=== PATIENT | female | born 1990 | race Caucasian/White ===

== ENCOUNTER 2023-03-03 13:52 | Outpatient (CLI) | payer OTHER, SELFPAY ==
--- NOTE | 2023-03-03 14:00 | CRLHL7_ITS ---
For Patients: As a result of the Century Cures Act, medical imaging exams and procedure reports are released immediately into your electronic medical record. You may view this report before your referring provider. If you have questions, please contact your health care provider. INDICATION: Evaluate anatomy. COMPARISON: 12/10/2022 TECHNIQUE: Real time blue scale imaging of the fetus was performed as well as color Doppler analysis of the umbilical vessels. FINDINGS: Sonographic imaging demonstrates a single living intrauterine gestation. Fetus demonstrates a regular cardiac rate of 155 beats per minute. Fetus has a variable position. The placenta lies posteriorly without evidence of placenta previa. The placental edge is 5.1 cm from the internal cervical os. Amniotic fluid volume appears normal. Single deepest vertical pocket: 6.2 cm. The cervix is closed and measures 4.6 cm in length. The composite ultrasound gestational age is calculated at 21 weeks 0 days with an estimated sonographic due date of 07/14/2023. The estimated weight is 405 grams which lies at the 78th %. The following biometric measurements were obtained: Biparietal diameter: 4.9 cm/20 weeks 6 days 60th% Head circumference: 18.6 cm/20 weeks 6 days 57th% Abdominal circumference: 16.3 cm/21 weeks 2 days 69th% Femur length: 3.5 cm/21 weeks 1 day 61st% The HC/AC ratio measures: 1.14 range (1.06-1.25) On anatomic survey, there is a normal appearance of the cerebral ventricles, cavum septi pellucidi, cisterna magna and cerebellum. Incomplete visualization of the profile. The cervical, thoracic and lumbar spine are well visualized and appear normal. There is a normal four-chamber heart view and the left and right ventricular outflow tracts appear normal. There is mention of a possible echogenic intraventricular focus which does not appear very echogenic on image [id number], series 2. The diaphragm and stomach appear normal. The kidneys and bladder also appear normal. There is a normal three-vessel cord and cord insertion site. The four extremities appear normal. IMPRESSION: Concordance of clinical and sonographic dating. The heart views appear to be normal. It is doubtful that there is an echogenic focus. Incomplete visualization of the profile due to position. Short-term follow-up of the profile and second-look of the heart recommended. Dictated by Denis Grimes MD @ 03/04/2023 10:19:27 AM (Electronically Signed)
== END 2023-03-03 13:53 | disposition home or self-care (01) ==
LOC: US 13:53
PROVIDERS: Visit Provider Advanced Practice Midwife
DX: Z34.92 Encounter for supervision of normal pregnancy, unspecified, second trimester (principal); O35.BXX0 Maternal care for other (suspected) fetal abnormality and damage, fetal cardiac anomalies, not applicable or unspecified; Z3A.21 21 weeks gestation of pregnancy
CPT/HCPCS: 76805; 76817

== ENCOUNTER 2023-03-10 10:51 | Outpatient (CLI) | payer OTHER, SELFPAY ==
--- NOTE | 2023-03-10 11:00 | CRLHL7_ITS ---
For Patients: As a result of the Century Cures Act, medical imaging exams and procedure reports are released immediately into your electronic medical record. You may view this report before your referring provider. If you have questions, please contact your health care provider. INDICATION: Follow-up profile and left ventricle. COMPARISON: 03/03/2023 TECHNIQUE: : Real time blue scale imaging of the fetus was performed. FINDINGS: Sonographic imaging demonstrates a single living intrauterine gestation. Fetus demonstrates a regular cardiac rate of 148 beats per minute. Fetus has a vertex position. The placenta lies posteriorly. Amniotic fluid volume appears normal. There does appear to be a small intracardiac hyperechoic focus. profile appears normal. Anterior uterine fibroid is present measuring 2.0 x 2.2 x 2.0 cm. IMPRESSION: Small echogenic hard focus appears to be present. Normal profile. Level 2 ultrasound recommended. Dictated by Denis Grimes MD @ 03/10/2023 1:02:22 PM (Electronically Signed)
== END 2023-03-10 10:52 | disposition home or self-care (01) ==
LOC: US 10:52
PROVIDERS: Visit Provider Advanced Practice Midwife
DX: Z34.90 Encounter for supervision of normal pregnancy, unspecified, unspecified trimester (principal)
CPT/HCPCS: 76816

== ENCOUNTER 2023-05-05 08:39 | Outpatient (CLI) | payer OTHER, BC, SELFPAY | END 2023-05-05 08:40 | disposition home or self-care (01) | LOC: NFLDREF 08:40 | PROVIDERS: Visit Provider Advanced Practice Midwife | DX: O26.893 Other specified pregnancy related conditions, third trimester (principal); Z67.91 Unspecified blood type, Rh negative; Z3A.29 29 weeks gestation of pregnancy | CPT/HCPCS: 86592; 86850; J2791 ==

== ENCOUNTER 2023-06-23 10:35 | Outpatient (CLI) | payer OTHER, BC, SELFPAY | END 2023-06-23 10:36 | disposition home or self-care (01) | LOC: NFLDREF 06-27 15:40 | PROVIDERS: Visit Provider Advanced Practice Midwife | DX: O26.899 Other specified pregnancy related conditions, unspecified trimester (principal); Z23 Encounter for immunization; Z67.91 Unspecified blood type, Rh negative | CPT/HCPCS: 87081; 87653 ==

== ENCOUNTER 2023-07-14 13:43 | Inpatient (IN) | payer OTHER, BC, SELFPAY ==
[2023-07-14] VITALS (9 sets, daily range): BP systolic 119–137; BP diastolic 72–89; PULSE 70–89; RESP 18; TEMP 36.4–36.8; O2SAT 98; BMI 27.1
--- NOTE | 2023-07-14 17:39 | P.LDBA_ITS ---
Subjective History of Present Illness Date Seen: 07/14/23 Narrative: Patient is being admitted to Labor and Delivery for SROM. She is a 33 year old at 39.4 weeks gestation. Her full history and physical was dictated by Mil Iniguez CNM on 06/30/23. Please see this for details. Tonie noticed a small gush of fluid starting on . She states that since then she has noticed this gushing a few times a day. She denies any large gushes and only has felt a small amount of thin, clear fluid. She feels that she maybe had a larger gush on Friday that soaked her underwear. Today at her regular appointment and AmniSure was collected. While waiting for results a cervical exam was performed and at that time a large gush of clear fluid was noted. She states that it was much larger than anything else she has had. Her AmniSure did also come back positive. Her cervical exam was 1-2cm/70%/-2. She was escorted down to L&D and admitted. Specific Issues/Plans : Raji H&P done by INOCENCIA Barnard on 06/30/2023 1. Migraines without aura Reglan rx sent 2. US: PARISH 0.7 x 1.2 x 1.6 cm and possible leiomyoma measuring 2.0 x 2.0 x 1.8 cm. 3. Rh NEGATIVE Recommended RhoGAM at 28 weeks: 05/05/2023 Recommend RhoGAM pp 4. Limited profile views at anatomy scan. Questionable echogenic focus by tech but final report The heart views appear to be normal. It is doubtful that there is an echogenic focus. RESOLVED F/U US in 1-2 weeks for profile and 2nd look at heart. Echogenic foci noted, desires level II: 03/25/2023 WNL, no echogenic foci seen, EFW 58%ile [id number]: neg 5. Anemia. Hgb 10.6 at 34 weeks. EOD iron supplement. Declined gc/c swab at NOB. COVID: Completed, not boosted. Recommended. Declines Flu: getting this at work, 06/03/23 RSV: 06/23/23 Tdap: wants next visit OB - Problem Based A/P Additional Plan (1) PROM (premature rupture of membranes): Status: Acute (2) Rh negative state in antepartum period: Status: Acute Plan ASSESSMENT:? at 39.4 weeks gestation? GBS negative RH negative status Prelabor rupture of membranes. Potentially prolonged ROM? Uncomplicated ? ?? PLAN:? 1. Reviewed risks and benefits of augmentation with pitocin or cytotec vs expectant management. Pt prefers expectant management. Pitocin to follow if needed.? 2. Candidate for analgesia of choice. Planning unmedicated .? 3. Anticipate ? 4. Expectant management at this time.? 5. IV not needed at this time. Consider placement if patient condition changes. 6. Intermittent auscultation per unit policy. Delivery/Labor/Induction Plan Plan: expectant management OB Result Labs Blood Type: A (-) negative GBS Status: negative OB Exam Physical Exam Vital signs: Temp Pulse Resp BP Pulse Ox 98.2 F 71 18 119/72 98 07/14/23 16:15 07/14/23 17:16 07/14/23 15:27 07/14/23 17:16 07/14/23 13:56 Narrative: Psychiatric:? Alert and oriented x3? HEENT:? Normocephalic, atraumatic? Neck:? Supple without adenopathy or thyromegaly? Lungs:? Clear to auscultation bilaterally? Heart:? Regular rate and rhythm, no murmur, rub or gallop? Abdomen:? Soft, nontender, and gravid? Extremities:? No edema or erythema? Detailed Labor and Delivery Exam Patient Gravid: Yes Dilation (cm): 1 Effacement (%): 70 Consistency: medium Contraction Frequency: 3-4 Tachysystole: No Contraction intensity: Mild Fetus (Single) Station: -2 Amniotic Membrane Status: SROM Amniotic Membrane Fluid Description: Clear Heart Rate Baseline: 120 Monitor Accelerations: Present Monitor Decelerations: None Care Home Variability: Moderate (6-25)
[2023-07-15] VITALS (89 sets, daily range): BP systolic 61–149; BP diastolic 2–95; PULSE 67–130; RESP 14–18; TEMP 36.3–36.9; O2SAT 78–100
[2023-07-15] MEDS: CALCIUM CARBONATE 500 MG CHEW PO (00:10)
--- NOTE | 2023-07-15 01:35 | P.OBPN_ITS ---
Subjective Date Seen: 07/15/23 Narrative: ?Tonie is coping well with labor pain/contractions. ?Raji is with her for support. ?She would like to continue with breathing, relaxation and repositioning for comfort and pain management.?She is feeling more uncomfortable with contractions and was just getting into the tub for water therapy for her contraction pain. Objective Exam: VSS, afebrile General Appearance:? Calm, cooperative. ?No acute distress. ? Psychiatric Exam: Alert and oriented, appropriate affect Abdomen: Gravid Ctx: ?Q 2-3 min apart. ? ?Moderate ? FHTs: ?Baseline: 130. ? ? intermittently monitored SVE: deferred at this time, last exam was %/-3 Membranes: ?SROM ? Vital Signs: Last Vital Signs Temp 98 F 07/15/23 00:12 Pulse 67 07/15/23 00:12 Resp 18 07/14/23 15:27 BP 129/82 07/15/23 00:12 Pulse Ox 98 07/14/23 13:56 Contractions Contraction intensity: Mild Assessment Station: -2 Heart Rate Baseline: 120 Monitor Accelerations: Present Monitor Decelerations: None Plan Plan: Assessment:?? at 39.5 weeks gestation?? GBS negative Patient is coping well with challenges of labor.?? Labor type: Spontaneous, Early labor? complicated by: Anemia, taking iron supplement QOD Labor complicated by: Prolonged ROM? Plan:?? Continue with routine intrapartum cares as ordered.?? Patient encouraged to move and change positions to promote physiologic labor and .?? Nonpharmacologic comfort measures per patient preference. Candidate for anal gesia of choice if desired. Anticipate progress to NVD. ?
[2023-07-15] MEDS: LACTATED RINGERS 1000 ML 1,000 ML 1200 ML IV ×2 (06:25→07:47)
[2023-07-15] MEDS: fentaNYL 100 MCG/2 ML inj 50 MCG IVP (06:30)
--- NOTE | 2023-07-15 06:30 | PM.OBPNL ---
Subjective Date Seen: 07/15/23 Narrative: ?Tonie has been coping well with labor pain/contractions, she has recently requested an epidural for pain. ?Raji is with her for support. When in the tub she had a large gush of clear fluid, RN reported a bulging bag with vaginal exam just prior to that gush. ? Objective Exam: VSS, afebrile General Appearance:? Calm, cooperative. ?No acute distress. ? Psychiatric Exam: Alert and oriented, appropriate affect Abdomen: Gravid Ctx: ?Q 2-3 min apart. ? ? ?Strong FHTs: ?Baseline: 120. intermittently monitored SVE: 6/90%/+2 Membranes: ?SROM ? Vital Signs: Last Vital Signs Temp 98.2 F 07/15/23 04:25 Pulse 84 07/15/23 04:25 Resp 18 07/14/23 15:27 BP 110/63 07/15/23 04:25 Pulse Ox 98 07/14/23 13:56 Pelvic Exam Dilation (cm): 6 Effacement (%): 90 Station: +2 Contractions Monitor mode: Palpation Contraction Frequency: 2-3 Contraction pattern: Regular Contraction intensity: Strong/Firm Assessment Assessment: active labor Station: +2 Amniotic Membrane Status: SROM Heart Rate Baseline: 120 Monitor Accelerations: Present Monitor Decelerations: None Plan Plan: Assessment:?? at 39.5 gestation?? GBS negative Patient is coping with challenges of labor.?? Labor type: Spontaneous, Active labor? complicated by: anemia Labor complicated by: Prolonged ROM? Plan:?? Epidural for pain management per pt request Continue with routine intrapartum cares as ordered.?? Close monitoring for s/s of infection/fever. Patient encouraged to move and change positions to promote physiologic labor and .?? Anticipate progress to NVD. ?
[2023-07-15 06:31] LABS: Basophils Percent Auto 0.1 % (0.0-3.0); Eosinophils Percent Auto 0.1 % (0.0-7.0); Hematocrit 37.1 % (33.0-51.0); Hemoglobin* 12.7 gm/dL (12.0-16.0); Immature Granulocytes Pct Auto 0.5 %; Lymphocytes Percent Auto 4.7 % (20-44); Mean Corpuscular HGB Conc 34 gm/dL (32-36); Mean Corpuscular Hemoglobin 30 pg (26-34); Mean Corpuscular Volume 87 fL (80-100); Monocytes Percent Auto 2.9 % (0.0-11.0); Neutrophils Percent Auto 91.7 % (42.0-72.0); Platelet Count* 262 K/uL (140-440); RDW Coefficient of Variation % 13.5 % (11.5-15.5); Red Blood Count 4.25 m/uL (4.00-5.20); White Blood Count* 16.51 K/uL (4.50-11.00)
[2023-07-15 06:33] LABS: Slide Review Reflex No
[2023-07-15] MEDS: ROPIVACAINE 0.2% 100 ml 100 ML 12 MG EPIDURAL (06:58)
--- NOTE | 2023-07-15 07:02 | PM.ANBPRC ---
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 Marital status: . Partner: Raji. Lives with: in [place]. Pets: Dog. Yazidism/cultural needs: No. Chemical or radiation exposure: No. Pre- tobacco use: No. Pre- alcohol use: Yes, 1 or 2 per month. Current tobacco use: No. Current alcohol use: No. Recreational drug use: No. Dietary restrictions: No. Blood transfusion acceptable in an emergency: Yes. Planning to breastfeed: Yes. PSYCHOSOCIAL HISTORY: History of depression or currently depressed: No. Current physical, emotional, or sexual mistreatment: No. Problems that will make it hard to make it to appointments: No. What is your current living situation?: I presently have a place to live Problems where you live: no known problems In the past 12 months, utilities in danger of being shut off: no In past 12 months, lack of transportation kept you from medical appts, meetings, work, or getting things needed for daily living: no In the past 12 mos, have been you worried that your food would run out before you had money to buy more?: never true In the past 12 mos, the food you bought just didn't last and you didn't have money to buy more?: never true Smoking Status: Never smoker How often does anyone, including family, friends and others, physically hurt you: never How often does anyone, including family, friends and others, insult or talk down to you: never How often does anyone, including family, friends and others, threaten you with harm: never How often does anyone, including family, friends and others, scream or curse at you: never Little interest or pleasure in doing things: not at all Feeling down, depressed, or hopeless: not at all Meds Home Medications and Allergies Home Medications Medication Instructions Recorded Confirmed Type docosahexaenoic acid 200 mg 1 mg PO .qd 12/10/22 07/14/23 History capsule ( DHA) lactobacillus combination no.9 4 4,000 mmu cells PO ONCE 12/10/22 07/14/23 History billion cell capsule (Adult 50 Plus Probiotic) calcium carbonate 200 mg calcium 200 mg PO BID PRN 06/09/23 07/14/23 History (500 mg) chewable tablet (Tums) acetaminophen 500 mg tablet 1,000 mg PO Q6H PRN 06/23/23 07/14/23 History (Tylenol Extra Strength) ferrous gluconate 240 mg (27 mg 240 mg PO .every other day 06/23/23 07/14/23 History iron) tablet (Ferate) Allergies Allergy/AdvReac Type Severity Reaction Status Date / Time amoxicillin Allergy Mild Rash Verified 07/14/23 13:59 Results Labs Labs: Laboratory Results - last 24 hr 07/15/23 06:21 WBC 16.51 H RBC 4.25 Hgb 12.7 Hct 37.1 MCV 87 MCH 30 MCHC 34 RDW Coeff of Jenna 13.5 Plt Count 262 Neut % (Auto) 91.7 H Lymph % (Auto) 4.7 L [place] % (Auto) 2.9 Eos % (Auto) 0.1 Baso % (Auto) 0.1 Neut # (Auto) 15.10 H Lymph # (Auto) 0.80 L [place] # (Auto) 0.50 Eos # (Auto) 0.00 Baso # (Auto) 0.00 Abs Immat Gran (auto) 0.10 Imm/Tot Granulo (auto) 0.5 Vital Signs Vital Signs: Last Vital Signs Temp 98.2 F 07/15/23 04:25 Pulse 75 07/15/23 07:01 Resp 18 07/14/23 15:27 BP 136/72 07/15/23 07:01 Pulse Ox 89 07/15/23 07:01 Weight: 69.4 kg Height: 160.02 cm Anesthesia Procedures Epidural Insertion Patient Location: OB Start Time: 06:35 Stop Time: 07:03 Start Date: 07/15/23 Stop Date: 07/15/23 Reason for Block: procedure for pain Patient Position: sitting Performed By: Anderson Gonzalez Preanesthetic Checklist: IV checked, risks and benefits discussed, monitors and equipment checked, pre-op evaluation, timeout performed and anesthesia consent Prep: chlorhexidine gluconate Monitoring: blood pressure monitoring, continuous pulse oximetry and heart rate Approach: midline Vertebral Space: lumbar (1-5) Epidural Technique: PAUL saline Needle Type: Tuohy needle Injection Technique: continuous catheter Needle gauge: 17 Needle Length (cm): 10 cm Needle Insertion Depth (cm): 6 Catheter Gauge: 19 Catheter Type: multi-orifice Catheter at skin depth (cm): 12 Test Dose Result: negative and lidocaine 1.5% with epinephrine 1 to 200,000
[2023-07-15] MEDS: PHENYLEPHRINE 100 MCG/ML SYRINGE IVP ×4 (07:12→08:18)
--- NOTE | 2023-07-15 08:15 | PM.OBCN1 ---
OB - CN: HPI Date of Consult Date Seen: 07/15/23 Patient: [facility] Patient (CNM) Consult date: 07/15/23 Requesting Physician: Prudence Chamorro CNM Primary Care Provider: Not a Local Provider Consult Narrative Reason for consult: other (Review of NST) Narrative: The patient is a 33 year old G 1 P 0 at 39 5/7 weeks gestation that was admitted to the Center on 07/14/23 for IOL after PROM. I was asked by INOCENCIA to review tracing. History History 1 Elective abortions Para 0 Spontaneous abortions Hx # Term Pregnancies Ectopic pregnancies Hx # Pregnancies Multiple births Number of Living Children 0 Labs Blood type: A (-) negative GBS status: negative OB Labs: Lab Assessment Start: 07/14/23 13:50 Freq: ONCE Status: Complete Protocol: PC.OBGBS Activity Type Activity Date Activity User E-sign Co-sign Detail Recorded Client Recorded Date Recorded By Document 07/14/23 14:01 DEEPA [id number] 07/14/23 14:18 DEEPA 07/14/23 14:01 Lab Assessment GBS Status negative Maternal Blood Type A Maternal RH Factor Negative Evaluate Maternal Rubella Immune Status Immune Hepatitis B Surface Antigen Negative Maternal HIV Status Negative Maternal Syphillis (RPR) Status Negative PFSH PFSH Medical History Frequent UTI ?N39.0 - Urinary tract infection, site not specified (ICD-10) Social History Narrative: SOCIAL HISTORY: 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 Marital status: . Partner: Raji. Lives with: in [place]. Pets: Dog. Confucianism/cultural needs: No. Chemical or radiation exposure: No. Pre- tobacco use: No. Pre- alcohol use: Yes, 1 or 2 per month. Current tobacco use: No. Current alcohol use: No. Recreational drug use: No. Dietary restrictions: No. Blood transfusion acceptable in an emergency: Yes. Planning to breastfeed: Yes. PSYCHOSOCIAL HISTORY: History of depression or currently depressed: No. Current physical, emotional, or sexual mistreatment: No. Problems that will make it hard to make it to appointments: No. What is your current living situation?: I presently have a place to live Problems where you live: no known problems In the past 12 months, utilities in danger of being shut off: no In past 12 months, lack of transportation kept you from medical appts, meetings, work, or getting things needed for daily living: no In the past 12 mos, have been you worried that your food would run out before you had money to buy more?: never true In the past 12 mos, the food you bought just didn't last and you didn't have money to buy more?: never true Smoking Status: Never smoker How often does anyone, including family, friends and others, physically hurt you: never How often does anyone, including family, friends and others, insult or talk down to you: never How often does anyone, including family, friends and others, threaten you with harm: never How often does anyone, including family, friends and others, scream or curse at you: never Little interest or pleasure in doing things: not at all Feeling down, depressed, or hopeless: not at all Meds Home Medications and Allergies Home Medications Medication Instructions Recorded Confirmed Type docosahexaenoic acid 200 mg 1 mg PO .qd 12/10/22 07/14/23 History capsule ( DHA) lactobacillus combination no.9 4 4,000 mmu cells PO ONCE 12/10/22 07/14/23 History billion cell capsule (Adult 50 Plus Probiotic) calcium carbonate 200 mg calcium 200 mg PO BID PRN 06/09/23 07/14/23 History (500 mg) chewable tablet (Tums) acetaminophen 500 mg tablet 1,000 mg PO Q6H PRN 06/23/23 07/14/23 History (Tylenol Extra Strength) ferrous gluconate 240 mg (27 mg 240 mg PO .every other day 06/23/23 07/14/23 History iron) tablet (Ferate) Allergies Allergy/AdvReac Type Severity Reaction Status Date / Time amoxicillin Allergy Mild Rash Verified 07/14/23 13:59 OB - H&P: Exam Physical Exam: Vital signs: Temp Pulse Resp BP Pulse Ox 98.2 F 85 18 103/60 100 07/15/23 04:25 07/15/23 08:12 07/14/23 15:27 07/15/23 08:12 07/15/23 07:23 Narrative: At this time I have not seen this patient I am reviewing her tracing and giving my recommendations: 130bpm/ moderate variability/positive accelerations. After placement of epidural and significant drop in blood pressure, had 2 deep, early but prolonged decelerations. Blood pressures treated, and now back to baseline and having early/variable decelerations currently not repetitive, less than 30 minutes. Moderate variability and accelerations persist at this time. OB - Results Labs Labs: Short CBC 07/15/23 Range/Units 06:21 WBC 16.51 H (4.50-11.00) K/uL Hgb 12.7 (12.0-16.0) gm/dL Hct 37.1 (33.0-51.0) % Plt Count 262 (140-440) K/uL OB - CN: A/P Assessment and Plan (1) PROM (premature rupture of membranes): Status: Acute (2) Rh negative state in antepartum period: Status: Acute Plan I recommend at this time to continue with position changes, fluid bolus, can also consider amnioinfusion since decelerations at this time consistent with umbilical cord compression. If pattern persists for more than 1 hour or worsens and patient is still far from delivery will proceed to expedite delivery with a section.
--- NOTE | 2023-07-15 08:37 | PM.OBPNL ---
Subjective Date Seen: 07/15/23 Narrative: Tonie had an epidural placed for pain management. Shortly before this, a large gush of fluid noted, and assumed to be SROM of forebag. She was admitted for SROM, which may have started 6 days ago. She was seen yesterday in the clinic and had a larger gush of fluid than she had been noting since last and was amnisure positive. Since the placement of her epidural, she has been having deep variables with ctx. [place] 60, lasting 1-2 minutes. Given medication to help with blood pressure changes, repositioned and fluid bolus given. Objective Exam: VSS, afebrile General Appearance:? Calm, cooperative. No acute distress. ? Psychiatric Exam: Alert and oriented, appropriate affect Abdomen: Gravid Ctx: ?Q 3-5 min apart. ? Moderate - Strong FHTs: Baseline: 125. Variability: moderate. Accels: rare. Decels: repetitive variable decels with most contractions. Good return to baseline between. SVE: 5-6/90/0 Membranes: SROM, clear fluid ? Vital Signs: Last Vital Signs Temp 98.2 F 07/15/23 04:25 Pulse 68 07/15/23 08:32 Resp 18 07/14/23 15:27 BP 105/67 07/15/23 08:32 Pulse Ox 100 07/15/23 07:23 Plan Plan: Assessment:?? at 39.5 gestation?? GBS neg Patient is coping well with challenges of labor.?? Labor type: Spontaneous, Active labor? complicated by: -anemia Labor complicated by: -possible prolonged ROM -Variable decels ? Plan:?? Consulted Dr. Draper about variable decels. Will try position changes, fluid bolus already infusing. If variable decels do not resolve, will try an amnio infusion. Plan reviewed w/ pt. Aware that if she remains remote from delivery and variable decels worsen, we may need to proceed with a section. Continue with routine intrapartum cares as ordered.?? Patient encouraged to move and change positions to promote physiologic labor and .?? Epidural for pain management. Anticipate progress to NVD.
[2023-07-15] MEDS: LACTATED RINGERS 1000 ML 1,000 ML 500 ML IV (09:51)
[2023-07-15] MEDS: AZITHROMYCIN 500 MG in 0.9 % SODIUM CHLORIDE 250 ml 250 ML 255 MG IVPB (11:58)
--- NOTE | 2023-07-15 12:15 | PM.OBPNL ---
Subjective Date Seen: 07/15/23 Narrative: CNM notified of worsening decels. Dr. Jauregui also at bedside for assessment. Pt dilated to a rim, reducible per her assessment. Recommendation to start pushing at this time r/t intolerance for labor. Pushing initiated, able to reduce rim w/ pushing, but returns between. Variable decels worsening at times w/ pushing, despite position changes and continued amnio infusion. Dr. Jauregui at bedside to continue pushing with pt and assess for possible vacuum or . After continued pushing, noted that baby descended w/ contractions/pushing, but no overall descent noted. Decision made to proceed with . Objective Exam: VSS, afebrile General Appearance:? Calm, cooperative. No acute distress. ? Psychiatric Exam: Alert and oriented, appropriate affect Abdomen: Gravid Ctx: ?Q 2-4 min apart. ? Moderate - Strong FHTs: Baseline: 135. Variability: min - mod. Accels: none. Decels: deep variable decels w/ contractions/pushing. SVE: rim, complete after pushing Membranes: SROM ? Vital Signs: Last Vital Signs Temp 98 F 07/15/23 09:06 Pulse 130 H 07/15/23 11:55 Resp 16 07/15/23 09:06 BP 104/60 07/15/23 11:55 Pulse Ox 100 07/15/23 07:23 Plan Plan: Assessment:?? at 39.5 gestation?? GBS neg Patient is coping well with challenges of labor.?? Labor type: Spontaneous, Active labor? complicated by: -anemia Labor complicated by: -possible prolonged ROM -Variable decels ? Plan:?? Dr. Jauregui at bedside to assess situation. Pushing initiated, with worsening variable decels. Decsion made to proceed with when descent not noted after pushing X 1 hour.
--- NOTE | 2023-07-15 12:25 | W.ANESCHARGE ---
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
--- NOTE | 2023-07-15 12:39 | SUR.OPER ---
THIS FRONT OFFICE SPEC COLLECTED THE CORD BLOOD (PER SURGEON VERBAL ORDER) AND GAVE THE SPECIMEN TO REUBEN ANDERSON RN.
--- NOTE | 2023-07-15 13:39 | P.ANES_ITS ---
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
--- NOTE | 2023-07-15 13:42 | W.PM.NB ---
Nerve Block Nerve Block Time Seen by Provider: 13:30 Date Seen: 07/15/23 Type of block requested by surgeon for post-operative analgesia: TAP Side: bilateral Time out performed: Yes Verification of patient name: Yes Verification of date of : Yes Site marking: site marked Name of person performing procedure: Jeevan Mnaty Continuous monitoring Was continuous monitoring of O2 sat, B/P, environmental monitoring specialist, recorded every 15 minutes?: Yes Procedure Checklist: sterile prep, needles and gloves Ultrasound guided. Images saved: Yes Medications given in 5ml increments after negative aspiration: Marcaine %: 0.25 mL: 30 and Exparel mL: 10 Patient tolerated procedure well: Yes Block Charges Block Charge (with Pro Fee): TAP Bilateral Use of Ultrasound Machine for Block: Yes- US Guidance/pain block
--- NOTE | 2023-07-15 14:35 | PM.OBPRCCS ---
OB Delivery Proc Additional Procedures Tubal Ligation at the time of : No Procedure Date of procedure: 07/15/23 Pre-op diagnosis: Protracted descent, intolerance of labor Post-op diagnosis: same ( hemorrhage due to bleeding left uterine vessel.) Procedure Done: Global Will [facility] bill your pro fee for this procedure?: Yes Blood Loss Measurement Type: QBL (1090, left bleeding uterine vessel) Bakri Used: No IV fluids (mL): 1,200 Urine Output (mL): 300 Urine Output Comment: [place] tinged prior to surgery Surgeon: Deedee Larry MD Technical Training Instructor: None Anesthesia Type: Epidural Findings: FINDINGS: Live-born male infant, cephalic OP presentation, Apgars 8 and 9 at 1 and 5 minutes respectively. weight 7 pounds 6 ounces. Normal appearing uterus, tubes, and ovaries. Procedure Name: Primary low transverse section Procedure Description: PROCEDURE: After obtaining informed consent, the patient was taken to the operating room where epidural anesthesia was confirmed to be adequate. She was prepared and draped in the normal sterile fashion in the dorsal supine position with a leftward tilt. A Pfannenstiel skin incision was made with a scalpel about 2cm above from symphysis pubic bone, of about 10-12cm in length. This incision was carried down to the underlying layer of fascia with the scalpel and Bovie. The fascia was incised in the midline and the incision extended laterally. The rectus muscles were then in the midline. The Ilya O retractor was then placed into the incision. The lower uterine segment was then incised in a transverse fashion with the scalpel. Upon entry into the uterus, thick meconium stained amniotic fluid was noted. The uterine incision was extended cephalo caudally with blunt finger fractionation. The infant's head was delivered atraumatically, followed by the remainder of the 's body. The nose and mouth were suctioned with the bulb suction. The cord was doubly clamped and cut, and the infant was handed off the field to the warmer for evaluation. The placenta was delivered spontaneously with umbilical cord traction and fundal massage. The uterus was cleared of all clots and debris. Left uterine blood vessels noted to be heavily bleeding and clamped with ring forceps for hemostasis until I was able to suture ligate. The uterine incision was reapproximated in a running locking fashion with a 0 Vicryl suture. A 2nd layer of the same suture was used to imbricate in horizontal fashion. The gutters were inspected and cleared of blood clots. All instruments and retractors were removed. The anterior peritoneum was reapproximated in a running fashion with a 3-0 Vicryl suture. The subfascial tissues were carefully inspected and hemostasis assured. The fascia was reapproximated in a running fashion with a looped 0 Vicryl suture. The subcutaneous tissues were copiously irrigated. Hemostasis was assured. The subcutaneous fat layer was reapproximated with interrupted sutures of 3-0 Vicryl. The skin was closed in a subcuticular fashion with 4-0 Monocryl. LiquiBand and dressing were applied. The patient tolerated the procedure well. Sponge, lap, needle, and instrument counts were reported as correct x2. The patient was taken to the recovery room, awake, and in stable condition. She did receive 2 grams of IV Ancef and 500mg of Azithromycin preoperatively. Complications: hemorrhage due to bleeding left uterine vessel. Pathology: specimen obtained, sent to pathology (Placenta ) Surgery Debrief Performed: Yes Surgery Debrief Comment: Specified procedure performed, QBL, pathology specimen and asked if there were any questions or concerns. Condition: stable Disposition: floor
--- NOTE | 2023-07-15 14:39 | PM.ANPOST ---
Post Anesthesia Note Post Anesthesia Note Patient seen: Inpatient Respiratory Status: adequate Cardiovascular Status: adequate Mental Status: baseline Pain: adequate Temp: baseline Anesthetic awareness: N/A Complications: none Follow care: none
[2023-07-15] MEDS: LACTATED RINGERS 1000 ML 1,000 ML 125 ML IV (14:45)
[2023-07-15] MEDS: ACETAMINOPHEN 500 MG TABLET 1000 MG PO (15:07)
[2023-07-15] MEDS: KETOROLAC 30 MG/ML inj IVP (19:00)
[2023-07-16] VITALS (20 sets, daily range): BP systolic 99–122; BP diastolic 57–77; PULSE 68–101; RESP 15–18; TEMP 36.6–36.8; O2SAT 96–98
[2023-07-16] MEDS: KETOROLAC 30 MG/ML inj IVP ×4 (01:00→19:40)
[2023-07-16] MEDS: DOCUSATE SODIUM 100 MG CAPSULE PO (09:23)
[2023-07-16] MEDS: ACETAMINOPHEN 500 MG TABLET 1000 MG PO ×3 (09:23→23:48)
[2023-07-16] MEDS: TETANUS/DIPHTH/PERTUSSIS 0.5 ML SYRINGE IM (09:25)
--- NOTE | 2023-07-16 10:39 | PM.OBPNVD1 ---
OB - PN:Subj Subjective Date Seen: 07/16/23 Narrative: Tonie is a 33 y.o. who was admitted to [facility] for SROM. ?She had a complicated by hemorrhage.?The patient feels well. ?The pain is well controlled with current medications. ?She has no new complaints. ?She is breast feeding and reports things are going well.? the patient has done well.? Vitals have been stable. Gestational hypertension diagnosed in labor, BP's have been stable since delivery. She has remained afebrile.? Has a good appetite, is tolerating a general diet. ?She is voiding without difficulty.? She is passing gas and has not had a bowel movement.? She is ambulating and denies any dizziness.? Has Small amount of rubra lochia. OB - PN: Obj Exam Physical Exam: Vital signs: Temp Pulse Resp BP Pulse Ox O2 Del Method 98.3 F 81 18 104/67 97 Room Air 07/16/23 09:30 07/16/23 09:30 07/16/23 09:59 07/16/23 09:30 07/16/23 09:30 07/16/23 09:30 Narrative: GENERAL APPEARANCE:? normal affect, alert, no distress MOOD:? appropriate CHEST:? clear to auscultation HEART:? regular rate and rhythm ABDOMEN:? soft, non-tender the uterine fundus is at Umbilicus, Midline and is appropriate for the stage of recovery. EXTREMITIES:? normal and no edema Incision: Dressing in place; clean, dry, and intact OB - PN: A/P Delivery Assessment and Plan (1) care and examination immediately after delivery: Status: Acute (2) Status post delivery: Status: Acute (3) Lactating mother: Status: Acute (4) Gestational hypertension: Status: Acute Plan day: 1 Plan: routine care Comments: plan: Routine Post-op care , may see if needed Hgb pending. GHTN diagnosed by elevated BP greater than 4 hours apart Labs to be drawn. They were ordered to be done this morning by Dr. Jauregui. It was noted while round that they had not been drawn. RN notified and labs pending. Continue to monitor blood pressure
[2023-07-16 12:51] LABS: Basophils Percent Auto 0.2 % (0.0-3.0); Eosinophils Percent Auto 0.2 % (0.0-7.0); Hematocrit 27.8 % (33.0-51.0); Hemoglobin* 9.3 gm/dL (12.0-16.0); Immature Granulocytes Pct Auto 1.7 %; Lymphocytes Percent Auto 12.1 % (20-44); Mean Corpuscular HGB Conc 34 gm/dL (32-36); Mean Corpuscular Hemoglobin 30 pg (26-34); Mean Corpuscular Volume 89 fL (80-100); Monocytes Percent Auto 5.8 % (0.0-11.0); Platelet Count* 153 K/uL (140-440); Red Blood Count 3.14 m/uL (4.00-5.20); White Blood Count* 20.87 K/uL (4.50-11.00)
[2023-07-16 12:53] LABS: Slide Review Reflex No
[2023-07-16] MEDS: SODIUM CHLORIDE 0.9 % (FLUSH) 10 ML SYRINGE IVF ×2 (12:56→19:34)
[2023-07-16 13:06] LABS: Alanine Aminotransferase* 20 U/L (4-35); Aspartate Amino Transferase* 49 U/L (12-35); Blood Urea Nitrogen* 12 mg/dL (5-24); Creatinine* 0.7 mg/dL (0.5-1.5); Est. Creatinine Clearance* 95.44; Estimated Glomerular Filt Rate 118 ml/min
[2023-07-16] MEDS: FERROUS SULFATE 325 MG TABLET PO (15:58)
[2023-07-16 18:56] LABS: Hemoglobin* 8.8 gm/dL (12.0-16.0); Mean Corpuscular HGB Conc 33 gm/dL (32-36); Mean Corpuscular Hemoglobin 30 pg (26-34); Mean Corpuscular Volume 91 fL (80-100); Platelet Count* 142 K/uL (140-440); Red Blood Count 2.97 m/uL (4.00-5.20); White Blood Count* 16.48 K/uL (4.50-11.00)
[2023-07-16 18:59] LABS: Slide Review Reflex No
[2023-07-16 19:11] LABS: Alanine Aminotransferase* 19 U/L (4-35); Aspartate Amino Transferase* 38 U/L (12-35); Blood Urea Nitrogen* 12 mg/dL (5-24); Creatinine* 0.7 mg/dL (0.5-1.5); Est. Creatinine Clearance* 95.44; Estimated Glomerular Filt Rate 118 ml/min
[2023-07-16] MEDS: SIMETHICONE 80 MG TAB.CHEW PO (23:53)
[2023-07-17 04:23] VITALS: BP 106/63; PULSE 84; RESP 16; TEMP 36.6; O2SAT 96
--- NOTE | 2023-07-17 07:41 | PM.OBDSVD1 ---
DS: Providers Provider Date Seen: 07/17/23 Date of admission: 07/14/23 13:43 Primary care physician: Not a Local Provider Admitting Clinician: Prudence Chamorro CNM Attending Physician on discharge: Yelena Madrid CNM Date of Discharge: 07/17/23 DS: Diagnosis Discharge Diagnosis (1) care and examination immediately after delivery: Status: Acute (2) Lactating mother: Status: Acute (3) Status post delivery: Status: Acute (4) Gestational hypertension: Status: Acute (5) Anemia: Status: Acute Exam Narrative: Exam Narrative: VSS. ?Afebrile GENERAL APPEARANCE: ?normal affect, alert, no distress MOOD: ?appropriate HEENT: normocephalic, neck supple, full ROM CHEST: ?Symmetrical chest wall movement. ?Normal respiratory effort. ?Clear to auscultation HEART: ?regular rate and rhythm ABDOMEN: ?soft, non-tender. Uterine fundus is firm, at Umbilicus, Midline and is appropriate for the stage of recovery. ?Bowel sounds present. EXTREMITIES: ?normal and no edema SKIN: warm, dry. ? ?Incision clean/dry/well approximated. Significant bruising around and below incision site. ?No signs of infection noted. Const: Vital Signs, click to edit/add: Vital Signs - 24 hr 07/16/23 08:00 07/16/23 09:00 07/16/23 09:30 Temperature 98.3 F Pulse Rate [Pulse Oximeter] 81 Respiratory Rate 16 16 16 Blood Pressure [Le ft Arm] 104/67 Pulse Oximetry 97 Oxygen Delivery Me thod Room Air 07/16/23 09:59 07/16/23 10:43 07/16/23 11:43 Temperature Pulse Rate [Pulse Oximeter] Respiratory Rate 18 18 16 Blood Pressure [Le ft Arm] Pulse Oximetry Oxygen Delivery Me thod 07/16/23 12:43 07/16/23 12:51 07/16/23 16:11 Temperature 98.3 F 98.2 F Pulse Rate [Pulse Oximeter] 84 68 Respiratory Rate 16 16 16 Blood Pressure [Le ft Arm] 99/61 106/57 L Pulse Oximetry 96 98 Oxygen Delivery Me thod Room Air Room Air 07/16/23 19:42 07/16/23 20:15 07/16/23 23:54 Temperature 98.2 F 97.9 F Pulse Rate [Pulse Oximeter] Respiratory Rate 16 16 Blood Pressure [Le ft Arm] 122/77 111/73 Pulse Oximetry 96 96 Oxygen Delivery Me thod Room Air Room Air 07/17/23 04:23 Temperature 97.9 F Pulse Rate [Pulse Oximeter] 84 Respiratory Rate 16 Blood Pressure [Le ft Arm] 106/63 Pulse Oximetry 96 Oxygen Delivery Me thod Room Air Documenting provider has reviewed patient's vital signs: yes OB - DS: Summary Hospital Course Hospital Course: The patient is a 33 year old G 1 P 1 at 39.5 weeks gestation that was admitted to the Center on 07/14/23 for SROM. She had an uncomplicated delivery. She delivered a viable male infant. She is breast feeding. the patient has done well. The patient feels well.? The pain is well controlled with current medications.? She has no new complaints.? Urinary output is adequate and she is voiding without difficulty.? Has a good appetite, is tolerating a general diet, is passing flatus, and has not yet had a bowel movement.? Has scant amount of rubra lochia.? She is ambulating well. She is and reports it is going well.?She is requesting to go home today Peripartum Data delivery method: Primary C/S; Labored Procedures: Procedures Operation Date: 07/15/23 12:15 Actual Procedure Side Surgeon p Section Not Applicable Brittny Larry MD complications: none [place] Infant Gender: Male Discharge Plan: Home Status at Discharge Functional status at discharge: independent ambulation Overall status at discharge: patient is progressing back to baseline Time Spent with Patient Time attestation: Total time spent providing and/or coordinating discharge services: Time spent: Less than 30 minutes Discharge Plan Discharge Disposition: Home, Self-Care Date of Admission: 07/14/23 13:43 Attending Provider on Discharge: Yelena Madrid Primary Care Provider: Provider,Not a Local Condition: Stable Anticipated Discharge Date/Time: 07/17/23 12:00 Discharge Medications: New acetaminophen 500 mg Tablet 1,000 mg PO Q6H PRN (Reason: Pain) Qty: 0 0RF ferrous sulfate 325 mg (65 mg iron) Tablet 325 mg PO Q48H Qty: 60 0RF docusate sodium 100 mg Capsule 100 mg PO DAILY Qty: 90 3RF ibuprofen 600 mg Tablet 600 mg PO Q6H PRN (Reason: Pain) Qty: 60 0RF oxycodone 5 mg Tablet 5 - 10 mg PO Q4H PRN (Reason: Pain) Qty: 10 0RF Continued calcium carbonate [Tums] 200 mg calcium (500 mg) tablet,chewable 200 mg PO BID PRN DHA 200 mg capsule 1 mg PO .qd Adult 50 Plus Probiotic 4 billion cell capsule 4,000 mmu cells PO ONCE ferrous gluconate [Ferate] 240 mg (27 mg iron) tablet 240 mg PO .every other day Discontinued acetaminophen [Tylenol Extra Strength] 500 mg tablet 1,000 mg PO Q6H PRN Discharge Orders: Discharge Order (Routine); Ordered 07/17/23 Ordered By: Yelena Madrid Patient Education: OB High Blood Pressure DC, OB Over the Counter Medication Information, OB /Breast Feeding Additional Instructions: Discharge instructions were reviewed with the patient including signs and symptoms of infection and home going medications Lifting Restrictions: 20 pounds for 6 weeks No not submerge incision under water X 2 weeks? Nothing vaginally for 6 weeks: no tampons or intercourse Do not drive while taking narcotic pain medication(s) Off Work or School for 6 weeks [facility] for [facility] BP check?07/21/23 Call with BP greater than or equal to 160/110 2-week visit: incision check, discuss feeding concerns, review control options and screen for anxiety/depression. 6-week visit for an annual exam. consultation services are available to all mothers and babies for the first year after delivery.? To make an appointment, please call [phone]. Activity Level: Activity as Tolerated Discharge Diet: Regular Follow Up Appointments: Provider,Not a Local [Primary Care Provider] - [facility] [Provider Group] Forms: [facility] Info Instructions
[2023-07-17 08:12] VITALS: BP 114/71; PULSE 70; RESP 16; TEMP 36.4; O2SAT 97
[2023-07-17] MEDS: ACETAMINOPHEN 500 MG TABLET 1000 MG PO (08:17)
[2023-07-17] MEDS: DOCUSATE SODIUM 100 MG CAPSULE PO (08:17)
== END 2023-07-17 12:53 | disposition home or self-care (01) | DRG 787 ==
LOC: OB 07-15 08:32
PROVIDERS: Advanced Practice Midwife; Obstetrics & Gynecology; Admitting Provider Advanced Practice Midwife; Visit Provider Advanced Practice Midwife
PROC: (CPT 59514; principal; 2023-07-15 12:00)
DX: O42.12 Full-term premature rupture of membranes, onset of labor more than 24 hours following rupture (principal); O72.1 Other immediate postpartum hemorrhage; O76 Abnormality in fetal heart rate and rhythm complicating labor and delivery; O62.1 Secondary uterine inertia; Z3A.39 39 weeks gestation of pregnancy; Z37.0 Single live birth; O13.4 Gestational [pregnancy-induced] hypertension without significant proteinuria, complicating childbirth; O26.893 Other specified pregnancy related conditions, third trimester; Z67.11 Type A blood, Rh negative; O99.013 Anemia complicating pregnancy, third trimester; D64.9 Anemia, unspecified; O34.13 Maternal care for benign tumor of corpus uteri, third trimester; G43.009 Migraine without aura, not intractable, without status migrainosus; G89.18 Other acute postprocedural pain; O77.0 Labor and delivery complicated by meconium in amniotic fluid; O32.4XX0 Maternal care for high head at term, not applicable or unspecified; O99.03 Anemia complicating the puerperium
CPT/HCPCS: 01967; 01968; 36415; 64488; 76942; 82565; 84450; 84460; 84520; 85025; 85027; 86850; 86870; 86880; 86900; 86901; 88307; 90715; 99140; 99213; A9270; C9290; J0456; J0665; J1100; J1200; J1885; J2274; J2371; J2405; J2590; J2795; J3010; J7050; J7120; S0020

== ENCOUNTER 2023-11-10 13:00 | Outpatient (RCR) | payer BC, SELFPAY | END 2024-03-09 23:59 | disposition home or self-care (01) | PROVIDERS: Visit Provider Advanced Practice Midwife | DX: L90.5 Scar conditions and fibrosis of skin (principal); R10.31 Right lower quadrant pain; R27.9 Unspecified lack of coordination; R53.1 Weakness; Z51.89 Encounter for other specified aftercare | CPT/HCPCS: 97110; 97140; 97162 ==

== ENCOUNTER 2024-10-29 10:01 | Outpatient (CLI) | payer OTHER, BC, SELFPAY ==
--- NOTE | 2024-10-29 10:15 | CRLHL7_ITS ---
For Patients: As a result of the Century Cures Act, medical imaging exams and procedure reports are released immediately into your electronic medical record. You may view this report before your referring provider. If you have questions, please contact your health care provider. OB ULTRASOUND LESS THAN 14 WEEKS, 10/29/2024 CLINICAL HISTORY: Dating and viability. TECHNIQUE: Real time blue scale imaging of the fetus was performed transvaginal. COMPARISON: None. FINDINGS: LMP: 08/28/2024. DOM by LMP: 06/04/2025. GA: 8 weeks 6 days. CRL: 2.4 cm, 9 weeks 1 day. DOM: 06/02/2025. FHR: 167 bpm. GEST SAC: 4.1 cm, appears within normal limits. YOLK SAC: 3.8 cm, appears within normal limits. RIGHT OVARY: 3.9 x 1.8 x 2.0 cm, within normal limits. CL LEFT OVARY: 2.3 x 1.1 x 0.9 cm, within normal limits. IMPRESSION: 1. Single living intrauterine with sonographic gestational age 9 weeks 1 day and sonographic due date 06/02/2025. 2. Subchorionic hemorrhage measures 0.9 x 1.6 x 1.2 cm. Denis Grimes M.D. Diagnostic Radiologist [email or web address] Transcribed: 10:23 am DW/Dictated by: Denis Grimes MD @ 10/31/2024 8:43:00 PM (Electronically Signed)
== END 2024-10-29 10:02 | disposition home or self-care (01) ==
LOC: US 10:02
PROVIDERS: Visit Provider Advanced Practice Midwife
DX: Z34.91 Encounter for supervision of normal pregnancy, unspecified, first trimester (principal); O20.9 Hemorrhage in early pregnancy, unspecified; Z3A.09 9 weeks gestation of pregnancy
CPT/HCPCS: 76817

== ENCOUNTER 2024-10-29 11:15 | Outpatient (CLI) | payer BC, OTHER, SELFPAY | END 2024-10-29 11:16 | disposition home or self-care (01) | PROVIDERS: Visit Provider Advanced Practice Midwife | DX: Z34.81 Encounter for supervision of other normal pregnancy, first trimester (principal); Z67.11 Type A blood, Rh negative | CPT/HCPCS: 82565; 82570; 83020; 83021; 84156; 84450; 84460; 84520; 85660; 86592; 86703; 86704; 86706; 86762; 86787; 86803; 86850; 86900; 86901; 87086; 87340 ==

== ENCOUNTER 2024-11-08 07:45 | Outpatient (CLI) | payer BC, OTHER, SELFPAY | END 2024-11-08 07:46 | disposition home or self-care (01) | LOC: NFLDREF 11-11 20:39 | PROVIDERS: Visit Provider Advanced Practice Midwife | DX: Z87.59 Personal history of other complications of pregnancy, childbirth and the puerperium (principal) | CPT/HCPCS: 82570; 84156 ==

== ENCOUNTER 2025-01-21 08:06 | Outpatient (CLI) | payer BC, OTHER, SELFPAY ==
--- NOTE | 2025-01-21 08:15 | CRLHL7_ITS ---
For Patients: As a result of the Century Cures Act, medical imaging exams and procedure reports are released immediately into your electronic medical record. You may view this report before your referring provider. If you have questions, please contact your health care provider. OB ULTRASOUND SURVEY LMP: 08/28/2024. DOM by LMP: 06/04/2025. GA: 20 w, 6 d. INDICATION: anatomy survey. TECHNIQUE: Real time blue scale imaging of the fetus was performed. Evaluate anatomy. Transabdominal. position: Multiple positions. Cervix: Visualized. Technique: Transabdominal. Length of closed cervix: 4.5 cm. Placenta/cord: Posterior. Technique: Transabdominal. Placenta tip to internal OS: 5.8 cm. Umbilical Cord: 3-vessel cord. Placenta insertion: Central. Amniotic Fluid: 6.1 cm SDP (greater than/equal to: 2- less than 8 cm). SURVEY: Observed Structures. Calvarium/Spine: Cerebellum: 2.3 cm, 22 w 4 d. Cisterna Magna: 5.8 mm. Nuchal Fold: 3.6 mm. Lateral Ventricle: 6.2 mm. CSP: Yes. Midline Falx: Yes. Choroid Plexus: Yes. Spine: Yes. Abdomen: Stomach: Yes. Abd Cord Insertion: Yes. Urinary Bladder: Yes. Kidneys: Yes. Diaphragm: Yes. Face: Nose/lips: Yes. Orbital view: Yes. Profile: Yes. Limbs: Upper Extremities: Yes. Lower Extremities: Yes. Hands: Yes. Feet: Yes. Vascular: 4-Chamber Heart: Yes. LVOT: Yes. RVOT: Yes. 3VV: Yes. No. 3VTV: Yes. No. BPD: 5.4 cm. 22 w, 2 d, 93rd percent. HC: 19.4 cm. 21 w, 4 d, 73rd percent. AC: 16.9 cm. 21 w, 6 d, 77th percent. FL: 3.7 cm. 21 w, 5 d, 72nd percent. FL/AC ratio: 21.8 percent. HC/AC ratio: 1.1. heart rate: 155 bpm. age by this US: 22 w, 0 d. DOM by this US: 05/27/2025. EFW: 454.5 g. Weight: 1 lb, 0 oz. Percentile by DOM: 90.9 percent. IMPRESSION: 1. Possible echogenic focus within the left ventricle. Remainder of the anatomic survey is normal. Level 2 ultrasound should be considered. 2. Sonographic age 22 weeks 0 days and sonographic due date 05/27/2025. Sonographic age is 8 days ahead of the clinical age. 3. Estimated weight 91st percentile. Abdominal circumference 77th percentile. Denis Grimes M.D. Diagnostic Radiologist [email or web address] DW/Dictated by: Denis Grimes MD @ 01/22/2025 9:13:00 PM (Electronically Signed)
--- OUTSIDE RECORDS SUMMARY | 2025-01-22 00:58 | XMS_ITS | Clinical Summary ---
Author Organization [employer] [facility] Address [address] [place] [id number] Care Team Providers Care Base Engineer Name Role Phone Pcp, No Primary Care Provider UnavailNargis Alarcon CNM Unavailable [phone] Allergies Active Allergy Reactions Criticality Noted Date Comments Amoxicillin Rash 10/16/2006 Medications tretinoin 0.05 % 0.05 % cream at bedtime. 10/14/2013 Acti ve norgestimate-eth inyl estradiol (ORTHO TRI-CYCLEN, 28,) 0.18/0.215/0.25 mg-35 mcg (28) tabletIndication s:Other acne,Irregular menstrual cycle Take 1 tablet by mouth once daily. 3 Package 2 01/11/2014 Active Active Problems Problem Noted Date Diagnosed Date cardiac echogenic focus, antepartum 2022 Suspected condition not found 03/25/2023 [facility] Supervision of high-risk 3 Overview (03/18/2023): [facility] ULTRASOUND/TESTING PATIENT Support person name: [employer]i [employer] Attendant: No ULTRASOUND TYPE: L2 REASON FOR VISIT: Incomplete profile and echogenic focus on FAS 03/03/23; f/u U/S on 03/10 profile appears normal, small intracardiac hyperechoic focus NEXT VISIT ALERTS: Non-[facility] labs need to be entered in EPIC? Yes NURSING VISIT ALERT: Create and link episode at day of visit. Document in Dating section. GA 23w5d Final DOM by LMP LMP Date: 10/10/22 DOM: 07/17/23 Early US: Date: 12/10/22 GA: 8w5d DOM: 07/17/23 PrePregnancy Weight: 121 lbs Height: 5'3 BMI: 21 PLANS & FUTURE APPOINTMENTS: ULTRASOUND/GROWTH PLAN: - Through: - Growth: Next TESTING PLAN: - Testing: Through DELIVERY PLAN: - Scheduled delivery: - Preferred delivery location: PRIMARY DIAGNOSIS: 32 y.o. Estimated Date of Delivery: 07/17/23. Echogenic focus? MATERNAL PREVIOUS ULTRASOUNDS: 03/25/23 23w5d 03/03/23 21w0d EFW 405 grams, percentile: 78 (PCP) 12/10/22 8w5d ECHO: REFERRING PHYSICIAN/PHONE/LAST UPDATE: Nargis Iniguez CNM [place] [phone] Primary MD approves scheduling of recommended ultrasounds/testing: No SPECIALISTS/CONSULTS: Include: Specialty MD Clinic Name Phone# [phone] [place] and ADDED TO PATIENT CARE TEAM Yes GENETICS: Declines/Not Done CARE COORDINATION: PERTINENT LABS: Labs reviewed? Yes Normal? Yes Blood type: A negative Antibody screen: negative PERTINENT MEDS: PROCEDURES: IF FGR <10% or EFW <2000 grams: Add FGRPCOM PLAN OF CARE: Original and updated POC Other acne 10/16/2006 Immunizations Immunization Administration Dates Next Due DTaP 03/08/1997, 3,1991,07/14,1991 HIB PRP-OMP (PedvaxHIB) 09/20/1992,1991, Hepatitis B (Peds) 12/27/2003,03/21/2003, 003 Influenza A (H1N1), Inactiva paula (Age >=3 Years) 11/01/2009 Influenza, IIV3 (Age >=3 years) 05/18/2013 MMR 02/14/2003,09/20/1992 Meningococcal Vaccine (Menactra) 11/01/2009 Oral Polio Vaccine 03/08/1997, 3,1991,05/18 Td (Age >=7 Years) 02/14/2003 Tdap 01/13/2013 Tuberculin (PPD) 01/13/2013 Family History Medical History Relation Name Comments Hypertension Father Heart Disease Paternal Grandfather NC Diabetes Paternal Grandmother Heart Disease Paternal Uncle NC Relation Name Status Comments Father Alive Maternal Grandfather Alive Maternal Grandmother Alive Mother Alive Paternal Grandfather (Age 40s) M I Paternal Grandmother Alive Paternal Uncle Social History Tobacco Use Types Packs/Day Years Used Date Smoking Tobacco: Never Smokeless Tobacco: Never Alcohol Use Standard Drinks/Week Comments Yes 0 (1 standard drink = 0.6 oz pur e alcohol) occasional Comments Unknown Sex and Gender Information Value Date Recorded Sex Assigned at Not on file Legal Sex Female 5:26 AM MANAGEMENT TRAINEE Gender Identity Not on file Sexual Orientation Not on file Obstetrics History Para Term AB IAB SAB Ectopic Multiple Livin g Live Births 1 Date Outcome GA Total Labor Labor/2nd/3rd Weight Sex Type Anes PTL Mara A1 A5 Name Clin Last Filed Vital Signs Vital Sign Reading Time Taken Comments Blood Pressure 113/73 08/30/2017 1:43 PM MANAGEMENT TRAINEE Pulse 82 08/30/2017 1:43 PM MANAGEMENT TRAINEE Temperature 36.5 C (97.7 F) 08/30/2017 1:43 PM MANAGEMENT TRAINEE drinking water Respiratory Rate 16 08/30/2017 1:43 PM MANAGEMENT TRAINEE Oxygen Saturation 100% 08/30/2017 1:4 3 PM MANAGEMENT TRAINEE Inhaled Oxygen Concentration - - Weight 55.6 kg (122 lb 9.6 oz) 08/30/2017 1:43 PM MANAGEMENT TRAINEE Height 160 cm (5' 2.99) 10/18/2013 10: 39 AM CDT Body Mass Index 21.72 10/18/2013 10:39 AM CDT Plan of Treatment Health Maintenance Due Date Last Done Comments Depression screening for age 12+ 2003 HIV for age 15-65 2006 BMI (ht and wt on same day) for age 18+ 2009 Hepatitis C screening for ag e 18-79 2009 Pap test for age 21-65 2012 Tetanus booster 01/13/2023 01/13/2013, 02/14/2003 COVID-19 vaccine series ( season) 2024 Influenza Vaccine (Season Ended) 2025 05/18/2013 Hepatitis B series for 19+ Completed 12/26, 03/21/2003, 02/14/2003 Tdap Completed 01/13/2013 Pneumococcal series for age 6-49 Aged Out No longer eligible b ased on patient's age to complete this topic Insurance R [facility] Member Subscriber Plan / Payer (Ef fective 2023-Present) Name:Tonie Villaseñor Relation to Subscriber:Spouse Name:SUNSHINE VILLASEÑOR Date of :1988 (Home) Address: [address] [place] [id number] Payer ID:[id number] (NAIC) Type:Not on file Address: [address] [place] [address] Care Teams Base Engineer Relationship Specialty Start Date End Date Pcp, No . PCP - General 02/14/23 Nargis Iniguez CNM [address] [place] [phone] Certified Nurse Android Ios Developer 03/14/23
== END 2025-01-21 08:07 | disposition home or self-care (01) ==
LOC: US 08:07
PROVIDERS: Visit Provider Midwife
DX: O09.92 Supervision of high risk pregnancy, unspecified, second trimester (principal); O36.63X0 Maternal care for excessive fetal growth, third trimester, not applicable or unspecified; Z3A.20 20 weeks gestation of pregnancy
CPT/HCPCS: 76805

== ENCOUNTER 2025-03-14 13:35 | Outpatient (CLI) | payer OTHER, BC, SELFPAY | END 2025-03-14 13:36 | disposition home or self-care (01) | LOC: NFLDREF 13:37 | PROVIDERS: Visit Provider Midwife | DX: Z34.93 Encounter for supervision of normal pregnancy, unspecified, third trimester (principal); Z3A.28 28 weeks gestation of pregnancy | CPT/HCPCS: 86592; 86850; J2791 ==

== ENCOUNTER 2025-05-09 08:49 | Outpatient (CLI) | payer OTHER, BC, SELFPAY ==
--- NOTE | 2025-05-09 09:00 | CRLHL7_ITS ---
For Patients: As a result of the Century Cures Act, medical imaging exams and procedure reports are released immediately into your electronic medical record. You may view this report before your referring provider. If you have questions, please contact your health care provider. INDICATION: TOLAC TECHNIQUE: Ultrasound OB pelvis transabdominal. Real-time blue-scale imaging of the fetus was performed without stress testing. COMPARISON: Ultrasound January 2025 FINDINGS: Sonographic imaging demonstrates a single living intrauterine gestation. Fetus demonstrates a regular cardiac rate of 137 beats per minute. Fetus has a cephalic orientation. Placenta is posterior and along the left lateral uterine wall. Polyhydramnios with CLARA of 35 and single deepest pocket measures 11.5 cm Biometric measurements: Biparietal diameter: 44. Head circumference: 48. Abdominal circumference: 72. Femur length: 78. Estimated weight: 3053, 69 percentile. Estimated ultrasound age by today`s measurements is 36 weeks 6 day DOM 05/31/2025. Amniotic fluid volume appears normal. breathing movements, motion, and tone were all observed. IMPRESSION: 1. Single viable intrauterine with a biophysical profile /8. 2. Estimated ultrasound age of 36 weeks 6 day. 3. EFW is at the 69th percentile. 4. Polyhydramnios with the single deepest pocket of 11.5 cm, CLARA 35.1 cm Dictated by Arturo Kelley MD @ 05/09/2025 2:22:11 PM (Electronically Signed)
== END 2025-05-09 08:50 | disposition home or self-care (01) ==
LOC: US 08:49
PROVIDERS: Visit Provider Midwife
DX: O34.211 Maternal care for low transverse scar from previous cesarean delivery (principal); O40.3XX0 Polyhydramnios, third trimester, not applicable or unspecified; Z3A.36 36 weeks gestation of pregnancy; O35.BXX0 Maternal care for other (suspected) fetal abnormality and damage, fetal cardiac anomalies, not applicable or unspecified
CPT/HCPCS: 76816; 76819; 87081; 87186; 87653

== ENCOUNTER 2025-05-09 10:29 | Outpatient (CLI) | payer BC, OTHER, SELFPAY ==
[2025-05-13 10:08] LABS: Strep B DNA Probe POSITIVE (Negative); Strep B Susceptibility Needed? Yes
== END 2025-05-09 10:30 | disposition home or self-care (01) ==
LOC: NFLDREF 10:29
PROVIDERS: Visit Provider Advanced Practice Midwife
DX: O35.BXX0 Maternal care for other (suspected) fetal abnormality and damage, fetal cardiac anomalies, not applicable or unspecified (principal); Z3A.36 36 weeks gestation of pregnancy
CPT/HCPCS: 87081; 87186; 87653

== ENCOUNTER 2025-05-23 08:53 | Inpatient (IN) | payer OTHER, BC, SELFPAY ==
[2025-05-23] VITALS (24 sets, daily range): BP systolic 100–126; BP diastolic 61–82; PULSE 75–103; RESP 16–22; TEMP 36.4–37.1; O2SAT 95–100; BMI 27.1
--- NOTE | 2025-05-23 09:11 | W.PM.LDBA ---
Subjective History of Present Illness Time Seen by Provider: 09:40 Date Seen: 05/23/25 Narrative: Patient is being admitted to Labor and Delivery for spontaneous onset of labor. She is a 35 year old at 38 weeks 2 days gestation. Her full history and physical was dictated by Dr. Miranda Madrid CNM on 05/09/25. She started brigette at home last night at 2330 and they have gotten regular and stronger since. Arrived to L&D at 0630 and was 2cm dilated. By 0900 she was 7cm with a bulging bag. No leaking of fluid or vaginal fluid. Good movement. Coping well with , Raji, at her side. Desires to get in the tub for pain management. LUIS Tatum Specific Issues/Plans : Raji Son: Clem H&P 05/09 #Polyhydramnios, Severe: CLARA >35 or SDP >16cm (greater than or equal to) ? [facility] consult at time of diagnosis?order placed, requested stat appointment ? CLARA every 2 weeks starting at 28 weeks or time of diagnosis? Growth US every 4 weeks?-last 05/09/25 69%ile. ? Weekly testing starting at 32 weeks? Recommend delivery: consider >37 weeks, deliver at tertiary care center? new onset at 36.2wks- CLARA 35.1 SDP 11.5 [facility] visit 05/10/25 moderate poly, repeat US in 1 week if severe delivery with them if moderate plan delivery with us with peds present. If mild ped notified at time of delivery. report noted FOB mother had significant polyhydramnios with him and he was dx age 5 with absence of lower esophageal sphincter. Notify peds at time of delivery if here. [facility] 05/16/25-Moderate polyhydramnios CLARA 33.5, SDP 11.6 BPP 03/11: Continue weekly testing with [facility] #Hx of primary low transverse section - protracted second stage (OP presentation) and intolerance of labor C/S 07/17/2023 for intolerance with failure to descend (complete dilation, OP) Consult with OBGYN to review/sign TOLAC consent: completed 02/14/2025. Predicted chance of success 59-72% (dependent on whether arrest disorder listed as reason for 1st C/S)?Returned 04/25/2025 Growth US at 36 weeks: EFW 69%ile # Possible echogenic focus in left ventricle. Level 2 ordered: completed 01/27/25 NIPT drawn at [facility] # Hx Gestational HTN Discussed low dose ASA therapy Baseline pre-e labs: AST 39, 24 hour urine normal. # Rh NEGATIVE Recommended RhoGAM at 28 weeks: given Recommend RhoGAM pp # GBS +, recommend antibiotics in labor Has allergy to amoxicillin: rash Cefazolin 2 g IV followed by 1 g Q 8 hours in labor ?? If planning IOL at 37 weeks, needs H&P at 36 weeks?? Ultrasound 1st trimester: 8 6/7 weeks by LMP, 9 1/7 weeks by u/s? DOM: 06/04/2025 by LMP FAS: 01/21/2025 Possible echogenic focus within the left ventricle, otherwise normal anatomy. EFW 91%, AC 77%. Lev 2: Solitary left intracardiac echogenic focus. No other concerns found. Dong NIPT. If normal, no f/u needed. NIPT done 01/27/25: Low risk Flu: will be getting it at work Covid: Declines Tdap: 04/05/2025 RSV: patient had in 2022 OB - Problem Based A/P Additional Plan (1) High-risk supervision: Status: Acute (2) Polyhydramnios affecting in third trimester: Status: Acute (3) Maternal care due to low transverse uterine scar from previous delivery: Status: Acute (4) Rh negative state in antepartum period: Status: Acute (5) Echogenic focus of heart of fetus affecting antepartum care of mother, single gestation: Problem details: left ventricle Status: Acute (6) Anemia: Status: Acute Plan 38w2d Active labor TOLAC- OR team in house. TOLAC protocol in place Moderate polyhydramnios GBS positive- Cefazolin 1gm IV q8hr d/t amoxicillin allergy. 1st dose given at 1000. Rh negative blood type- will collect cord blood Continuous monitoring Planning for unmedicated . Tub for pain management now. Not a waterbirth candidate d/t TOLAC Expectant management at this time. Anticipate successful Delivery/Labor/Induction Plan Plan: expectant management OB Result Labs Blood Type: A (-) negative Rubella: immune RPR/VDLR: nonreactive GBS Status: positive HBsAG: negative OB Exam Physical Exam Vital signs: Temp Pulse Resp BP Pulse Ox 98.4 F 96 16 120/82 95 05/23/25 06:40 05/23/25 06:40 05/23/25 06:40 05/23/25 06:40 05/23/25 06:40 Narrative: Objective: Constitutional: Alert and oriented x3, coping well Vital signs stable, see nurse documentation Abdomen: gravid, contractions palpate moderate with contractions and soft between Cervix: 7 cm/95 %/-2 station/vertex NST: 130 bpm/ moderate variability/accelerations present/intermittent variable decelerations/contractions 2-4 min. 50-80sec. Detailed Labor and Delivery Exam Patient Gravid: yes Dilation (cm): 7 Effacement (%): 95 Consistency: soft Contraction Frequency: 2-4min Contraction duration (sec): 70 (50-80sec) Tachysystole: No Contraction intensity: Moderate Fetus (Single) Station: -2 Amniotic Membrane Status: intact Heart Rate Baseline: 130 Monitor Accelerations: Present Monitor Decelerations: None Accounting Professional Variability: Moderate (6-25)
[2025-05-23 09:36] LABS: Hematocrit* 36.5 % (33.0-51.0); Hemoglobin* 12.1 gm/dL (12.0-16.0); Immature Granulocytes Pct Auto 0.4 %; Mean Corpuscular HGB Conc 33 gm/dL (32-36); Mean Corpuscular Hemoglobin 28 pg (26-34); Mean Corpuscular Volume 84 fL (80-100); RDW Coefficient of Variation % 12.9 % (11.5-15.5); Red Blood Count* 4.33 m/uL (4.00-5.20); White Blood Count* 14.30 K/uL (4.50-11.00)
[2025-05-23 09:51] LABS: Immature Granulocytes Abs Auto 0.10 K/uL (0.00-0.30); Lymphocytes Absolute Auto 1.00 K/uL (0.90-2.90); Slide Review Reflex No
[2025-05-23] MEDS: CLINDAMYCIN 900 MG/50 ML-D5W 900 MG/50 ML PIGGYBACK 100 MG IVPB ×2 (10:08→17:53)
--- NOTE | 2025-05-23 12:39 | P.OBPN_ITS ---
Subjective Time Seen by Provider: 12:30 Date Seen: 05/23/25 Narrative: Patient was admitted to Labor and Delivery for spontaneous onset of labor. She is a 35 year old at 38 weeks 2 days gestation. Her full history and physical was dictated by Dr. Miranda Madrid CNM on 05/09/25. She has a history of for protracted decent and intolerance and desires vaginal this time. She does have moderate polyhydramnios. She started brigette at home last night at 2330 and they have gotten regular and stronger since. No leaking of fluid or vaginal fluid. Did discussGood movement. Using hydrotherapy and movement for pain management. LUIS Tatum Objective Vital Signs: Last Vital Signs Temp 97.6 F 05/23/25 10:51 Pulse 91 05/23/25 10:51 Resp 18 05/23/25 10:51 BP 114/76 05/23/25 10:51 Pulse Ox 100 05/23/25 12:19 Pelvic Exam Dilation (cm): 7 Effacement (%): 100 Station: -2 Comments: Bulging bag. Discussed risks and benefits of AROM considering poly and GBS status. Discussed if artificially rupture would try to do very small hole. Declined at this point. Contractions Monitor mode: External Contraction Frequency: q3min. 70-100sec. Contraction pattern: Regular Contraction intensity: Moderate Assessment Assessment: active labor Station: -2 Status: Category ll Heart Rate Baseline: 135 Ceramic Maker Demonstrator Variability: Moderate (6-25) Monitor Accelerations: Present Monitor Decelerations: Variable Labor Progress: Slowed from her quick progress earlier. Maternal Status: Still coping well but wearing a bit. More difficulty relaxing between contractions. Plan Plan: 38w2d Active labor TOLAC- OR team in house. TOLAC protocol in place moderate polyhydramnios GBS positive- Cefazolin 1gm IV q8hr d/t amoxicillin allergy. 1st dose given at 1000. Discussed Cefazolin not being first line treatment and Peds may recommend staying 48 hours to monitor baby. Rh negative blood type- will get cord blood Continuous monitoring Planning for unmedicated . Back in tub for pain management. Not a waterbirth candidate d/t TOLAC Expect successful IPrudence APRN, INOCENCIA, was present for visit and have reviewed and agree with documentation by the Certified Nurse Midwifery Student.?
[2025-05-23] MEDS: ONDANSETRON 2 MG/ML inj 4 MG IV (13:43)
--- NOTE | 2025-05-23 17:03 | P.OBPN_ITS ---
Subjective Time Seen by Provider: 16:45 Date Seen: 05/23/25 Narrative: Patient was admitted to Labor and Delivery for spontaneous onset of labor. She is a 35 year old at 38 weeks 2 days gestation. Her full history and physical was dictated by Dr. Miranda Madrid CNM on 05/09/25. She has a history of for protracted decent and intolerance and desires vaginal this time. She does have moderate polyhydramnios. Good movement. Tonie is getting tired and wishes for to come sooner. Requesting AROM if safe. LUIS Tatum Objective Vital Signs: Last Vital Signs Temp 98.5 F 05/23/25 15:45 Pulse 90 05/23/25 14:29 Resp 20 05/23/25 14:29 BP 119/73 05/23/25 14:29 Pulse Ox 100 05/23/25 12:19 Pelvic Exam Dilation (cm): 8 Effacement (%): 100 Station: 0 Comments: head much better applied to cervix, bulging bag felt posterior to head AROM with scalp electrode earlier r/t polyhydramnios and head not well applied. Minimal fluid leaked. AROM with amnihook at 1645- head now well a pplied, mod. clear fluid. Contractions Monitor mode: External Contraction Frequency: q 4 min Contraction pattern: Regular Contraction intensity: Moderate Assessment Assessment: active labor Station: 0 Amniotic Membrane Status: AROM (AROM with scalp electrode earlier r/t polyhydramnios and head not well applied. Minimal fluid leaked. AROM with amnihook at 1645- head now well applied, mod. clear fluid.) Status: Category ll Heart Rate Baseline: 125 Orthopedic Surgeon Variability: Moderate (6-25) Monitor Accelerations: Present Monitor Decelerations: Variable Labor Progress: progressing slowly, bulging bag of hatfield likely minimizing cervical pressure Maternal Status: Coping but acknowledges she getting to her max limit. Plan Plan: Plan: 38w2d Active labor AROM TOLAC- OR team in house. TOLAC protocol in place moderate polyhydramnios GBS positive- Cefazolin 1gm IV q8hr d/t amoxicillin allergy. 1st dose given at 1000. Rh negative blood type- will get cord blood Continuous monitoring Planning for unmedicated Expect successful I, Prudence Chamorro APRN, CNM, was present for visit and have reviewed and agree with documentation by the Certified Nurse Midwifery Student.?
[2025-05-23] MEDS: OXYTOCIN 30 unit/500 ML in NS 30 UNIT/500 ML BAG 300 UNIT IVPB (18:02)
[2025-05-23] MEDS: lidocaine HCL 2 % JELLY (TOP) STERILE 6 ML TOPICAL (18:22)
[2025-05-23] MEDS: LIDOCAINE 1 % PF 30 ML INJECTION (18:25)
--- NOTE | 2025-05-23 19:13 | W.PM.OBVAGDE ---
OB Procedure Vag Delivery Mother Details Mother Details: The patient is a 35 year-old, 2, Para 1, admitted on 05/23/25 at 38.2Days gestation. : 2 Para: 2 Weeks Gestation: 38.2 Admission Date: 05/23/25 (1st AROM with FSH hook to facilitate a small leak given poly and large amount of fluid before head. 2nd AROM at 1651 as 1st seemed to have resealed and was no longer leaking) Additional Details Amniotic Membrane Status: AROM Amniotic Membrane Rupture Date: 05/23/25 Amniotic Membrane Rupture Time: 14:26 Amniotic Membrane Fluid Description: Yellow (very lightly stained fluid by the time of delivery, initially clear ) Analgesia/Anesthesia Type: Nitrous Oxide Waterbirth: No Pitcoin: Yes ([facility] only) Intrapartal Events: Labor Augmentation Delivery augmentation: rupture of membranes Labor Onset: 08:50 Complete: 17:20 Pushin:23 Heart: heart tones during second stage were category 2. Intermittent variables with initial pushing. Prolonged deceleration to the 80's with crown. Delivery imminent. Delivery Details Delivery Date: 05/23/25 Delivery Time: 18:00 Route of delivery: Infant Gender: Male Viability: Alive; Heart Rate Present Position at Delivery: OA Delivery Details: Patient was admitted for spontaneous labor and progressed slowly with AROM augmentation. AROM at 1426 with an FSE hook initially to facilitate a small leak given polyhydramnios and large bulging bag. A second AROM at 1651 after initially leaking stopped and labor was not continue to progress. AROM was not attempted until that time despite minimal cervical change to facilitate GSB prophylaxis. Initially clear fluid but was very lightly meconium stained by the time of delivery. Patient was complete at 1720 and pushing at 1723. of a viable male at 1800 in left tilt. Vertex delivered OA. No shoulder. Nuchal cord x1, cord was attempted to reduce before delivery but she was unable to stop pushing so baby was summersaulted and reduced after delivery. Body delivered easily and without incident. Infant passed to mothers abdomen with a vigorous cry. Cord was clamped and cut at > 5 minutes. APGARS were 8 at one minute and 9 at five minutes respectively. Mouth was bulb suctioned. Intact placenta with a 3 vessel cord delivered spontaneously at 1807. Fundus firm. 2nd degree perineal and a periurethral laceration identified and repaired in typical fashion. QBL 150 cc. Mother and baby stable; mother plans to breastfeed. weight pending. Prudence Johnson APRN, CNM, was present for entirety of the delivery and repair by the Certified Nurse Midwifery Student. Assistance and guidance was provied as needed. 1 Minute Interval Total Score: 8 5 Minute Interval Total Score: 9 Additional Details Shoulder Dystocia: No Placenta Delivery Time: 18:07 Placental Delivery Description: Spontaneous Delivery repair: Vicryl Procedure Done: Global Blood Loss: 150 Laceration: Perineal - 2nd Degree (and periurethral ) Blood Loss Measurement Type: QBL Bakri Used: No Sponge/Need Count Correct: Yes Cord Vessel Description: 3 Vessels, Nuchal Cord and Delivered through Event Summary Status: Mother and were stable after delivery. Disposition: floor
[2025-05-23] MEDS: ACETAMINOPHEN 500 MG TABLET 1000 MG PO (21:44)
[2025-05-24 00:44] VITALS: BP 105/61; PULSE 80; RESP 16; TEMP 36.3; O2SAT 96
[2025-05-24 04:18] VITALS: BP 106/60; PULSE 72; RESP 16; TEMP 36.7; O2SAT 96
[2025-05-24] MEDS: IBUPROFEN 600 MG TABLET PO ×3 (04:25→19:32)
--- NOTE | 2025-05-24 07:36 | PM.OBPNVD1 ---
OB - PN:Subj Subjective Date Seen: 05/24/25 Narrative: Tonie is a 35 year old who was admitted for spontaneous labor and proceeded to have a ? with a 2nd degree laceration that was repaired.The patient feels well.? The pain is well controlled with current medications.? She has no new complaints.? Urinary output is adequate and she is voiding without difficulty.? Has a good appetite, is tolerating a general diet, is passing flatus, and has had a bowel movement.? Has small amount of rubra lochia.? She is ambulating well. She is and reports it is going well.? OB - PN: Obj Exam Physical Exam: Vital signs: Temp Pulse Resp BP Pulse Ox O2 Del Method 98.0 F 72 16 106/60 96 Room Air 05/24/25 04:18 05/24/25 04:18 05/24/25 04:18 05/24/25 04:18 05/24/25 04:18 05/24/25 04:18 Narrative: GENERAL APPEARANCE:? normal affect, alert, no distress MOOD:? appropriate CHEST:? clear to auscultation HEART:? regular rate and rhythm ABDOMEN:? soft, non-tender the uterine fundus is At Umbilicus, Midline and is appropriate for the stage of recovery. PERINEUM:? mild edema of the perineum, there is a Perineal Laceration,?2nd degree that is healing well. EXTREMITIES:? normal and no edema OB - PN: Obj Data Labs Labs: Laboratory Results - last 24 hr 05/23/25 09:27 WBC 14.30 H RBC 4.33 Hgb 12.1 Hct 36.5 MCV 84 MCH 28 MCHC 33 RDW Coeff of Jenna 12.9 Plt Count 280 Neut % (Auto) 89.1 H Lymph % (Auto) 6.9 L Allen % (Auto) 3.4 Eos % (Auto) 0.1 Baso % (Auto) 0.1 Neut # (Auto) 12.70 H Lymph # (Auto) 1.00 Allen # (Auto) 0.50 Eos # (Auto) 0.00 Baso # (Auto) 0.00 Abs Immat Gran (auto) 0.10 Imm/Tot Granulo (auto) 0.4 Blood Type A Negative Antibody Screen POSITIVE OB - PN: A/P Delivery Assessment and Plan (1) Rh negative state in antepartum period: Status: Acute (2) Anemia: Status: Acute (3) care and examination immediately after delivery: Status: Acute (4) Lactating mother: Status: Acute Plan Comments: PP day #1 Routine care May see as desired Anticipate discharge tomorrow
[2025-05-24] MEDS: ACETAMINOPHEN 500 MG TABLET 1000 MG PO ×3 (09:43→22:12)
[2025-05-24 09:45] VITALS: BP 112/70; PULSE 87; RESP 16; TEMP 36.4; O2SAT 96
[2025-05-24] MEDS: DOCUSATE SODIUM 100 MG CAPSULE PO (09:49)
[2025-05-24 12:13] VITALS: BP 106/66; PULSE 75; RESP 16; TEMP 36.6; O2SAT 96
[2025-05-24 15:43] VITALS: BP 108/64; PULSE 78; RESP 16; TEMP 36.9; O2SAT 94
[2025-05-24 22:03] VITALS: BP 106/63; PULSE 69; RESP 16; TEMP 36.6; O2SAT 95
[2025-05-25] MEDS: IBUPROFEN 600 MG TABLET PO ×2 (01:29→08:54)
[2025-05-25 01:37] VITALS: BP 100/57; PULSE 57; RESP 16; TEMP 36.6; O2SAT 96
[2025-05-25] MEDS: ACETAMINOPHEN 500 MG TABLET 1000 MG PO ×2 (04:38→13:48)
--- NOTE | 2025-05-25 08:53 | P.DS_ITS ---
DS: Providers Provider Date Seen: 05/25/25 Date of admission: 05/23/25 08:53 Primary care physician: Not a Local Provider Admitting Clinician: Skye Lopez CNM Attending Physician on discharge: Skye Lopez CNM Exam Narrative: Exam Narrative: Vital signs reviewed and are within normal limits. General: Alert and oriented, no acute distress Psych: Appropriate mood and affect Abdomen: Soft, nontender and nondistended. Palpates firm at 1 below umbilicus. Extremities: No significant lower extremity edema. No calf erythema/tenderness. Const: Vital Signs, click to edit/add: Vital Signs - 24 hr 05/24/25 09:45 05/24/25 12:13 05/24/25 15:43 Temperature 97.5 F L 97.8 F 98.4 F Pulse Rate [Blood Pressure Cuff] 87 75 78 Respiratory Rate 16 16 16 Blood Pressure [Ri ght Arm] 112/70 106/66 108/64 Pulse Oximetry 96 96 94 Oxygen Delivery Me thod Room Air Room Air Room Air 05/24/25 22:03 05/25/25 01:37 Temperature 97.8 F 97.8 F Pulse Rate [Blood Pressure Cuff] 69 57 L Respiratory Rate 16 16 Blood Pressure [Ri ght Arm] 106/63 100/57 L Pulse Oximetry 95 96 Oxygen Delivery Me thod Room Air Room Air OB - DS: Summary Hospital Course Hospital Course: The patient is a 35 year old G 2 P 2 at 38 weeks gestation that was admitted to the Center on 05/23/25 for spontaneous onset of labor. She had an uncomplicated . She delivered a viable male infant. She is breast feeding. the patient has done well. Patient is feeling well today with no acute concerns. She notes her abdominal/pelvic pain is well controlled. Ambulates without difficulty, no dizziness or lightheadedness. Appetite at baseline, no nausea vomiting. Void spontaneously, passing flatus. No bowel movement yet. Lochia described as small volume. No significant edema, no calf erythema/tenderness. Infant Gender: Male Time Spent with Patient Time attestation: Total time spent providing and/or coordinating discharge services: Discharge Plan Discharge Disposition: Home, Self-Care Date of Admission: 05/23/25 08:53 Primary Care Provider: Provider,Not a Local Condition: Stable Anticipated Discharge Date/Time: 05/25/25 08:57 Discharge Medications: Continued DHA 200 mg capsule 1 mg PO .qd Adult 50 Plus Probiotic 4 billion cell capsule 4,000 mmu cells PO ONCE acetaminophen 500 mg Tablet 1,000 mg PO Q6H PRN (Reason: Pain) Qty: 0 0RF Discharge Orders: Discharge Order (Routine); Ordered 05/25/25 Ordered By: Keyonna Clemente Additional Instructions: Discharge instructions were reviewed with the patient including signs and symptoms of infection and home going medications Pain control with ibuprofen (600 mg q.6h p.r.n.) and Tylenol (1000 mg q.6h p.r.n.). Nothing vaginally for 6 weeks: no tampons or intercourse Do not drive while taking narcotic pain medication(s) Off Work or School for 8 weeks Symptoms to report to doctor: * Bleeding that saturates more than one pad per hour * Passing clots larger than the size of a golf ball * Pain not relieved by prescribed medication * Fever above 100.4 degrees Fahrenheit * A foul vaginal odor * Difficulty in emotions, mood, and functions * Thoughts of hurting yourself and/or * Painful, reddened area in your breast * Any drainage, redness, or tenderness in your IV/epidural site * Severe headache that doesn't improve after taking medications * Changes in vision, including temporary loss of vision, blurred vision, and/or light sensitivity * Upper abdominal pain (usually under ribs on the right side) * Decrease in urination or painful, frequent urinating * Chest pain * Shortness of breath * Tenderness or pain with redness and/swelling in the calf(s) of your leg Optional 2-week visit: discuss infant feeding concerns, review control options and screen for anxiety/depression. 6-week visit for an annual exam. consultation services are available to all mothers and babies for the first year after delivery.? To make an appointment, please call [phone]. Discharge Diet: Regular Follow Up Appointments: Provider,Not a Local [Primary Care Provider, Family Practice] Forms: Cod[employer] Info Instructions
[2025-05-25] MEDS: DOCUSATE SODIUM 100 MG CAPSULE PO (08:54)
[2025-05-25 10:15] VITALS: BP 117/80; PULSE 74; RESP 16; TEMP 36.6; O2SAT 97
== END 2025-05-25 14:13 | disposition home or self-care (01) | DRG 560 ==
LOC: OB OUT 08:54 → OB 08:54
PROVIDERS: Advanced Practice Midwife; Admitting Provider Midwife; Visit Provider Midwife
DX: O34.211 Maternal care for low transverse scar from previous cesarean delivery (principal); O70.1 Second degree perineal laceration during delivery; O71.82 Other specified trauma to perineum and vulva; O76 Abnormality in fetal heart rate and rhythm complicating labor and delivery; O40.3XX0 Polyhydramnios, third trimester, not applicable or unspecified; O99.824 Streptococcus B carrier state complicating childbirth; O26.893 Other specified pregnancy related conditions, third trimester; Z67.11 Type A blood, Rh negative; O99.02 Anemia complicating childbirth; D64.9 Anemia, unspecified; Z37.0 Single live birth; Z3A.38 38 weeks gestation of pregnancy
CPT/HCPCS: 36415; 85025; 86592; 86850; 86870; 86880; 86900; 86901; G0463; A9270; J0736; J2003; J2405

== ENCOUNTER 2025-05-30 21:08 | Emergency (ER) | payer OTHER, BC, SELFPAY ==
--- OUTSIDE RECORDS SUMMARY | 2025-05-10 14:00 | XMS_ITS | Encounter Summary ---
Author Organization [place] Address [address] [place] [id number] Care Team Providers Care Director Clinical Research Name Role Phone Prudence Sauceda APRN, CNP Primary Care Provider Reason for Referral * Diagnostic Imaging Ultrasound (Routine) - Pending Review Specialty Diagnoses / Procedures Referred By Wayne cruz Referred To Contact Radiology. Diagnoses related condition, antepartum Procedures [facility] US Comprehensive Single Yelena Gaffney APRN [address] [address] Phone: tel: fax: Referral ID Status Reason Start Date Expiration Date V isits Requested Visits Authorized [id number] Pending Review 05/09/2025 05/09/2026 1 1 Reason for Visit * Diagnostic Imaging Ultrasound (Routine) - Pending Review Specialty Diagnoses / Procedures Referred By Wayne cruz Referred To Contact Radiology. Diagnoses related condition, antepartum Procedures [facility] US Comprehensive Single Yelena Gaffney APRN [facility] [place] [place] [address] [place] [address] Phone: tel: fax: Referral ID Status Reason Start Date Expiration Date V isits Requested Visits Authorized [id number] Pending Review 05/09/2025 05/09/2026 1 1 Encounter Details Date Type Department Care Team (Latest Contact Info) Description 05/10/2025 2:00 PM CDT - 05/10/2025 11:59 PM CDT Hospital Encounter [facility] [place] [address] [facility] [address] [place] [address] Yelena Gaffney APRN [facility] [address] [place] [address] Keshia Jackson MD [address] [place] [address] related condition, antepartum Discharge Disposition: Home or Self Care Social History Tobacco Use Types Packs/Day Years Used Date Smoking Tobacco: Never Smokeless Tobacco: Never Alcohol Use Standard Drinks/Week Comments Yes 0 (1 standard drink = 0.6 oz pur e alcohol) less then 1 mper wk PHQ-2 Answer Date Recorded PHQ-2 Score 0 09/11/2021 Adolescent Education Answer Date Record ed Getting School Help Needed Not on file 04/25 Estimated Date of Delivery Comme nts Yes 06/04/2025 Based on last me nstrual period of 08/28/2024 Sex and Gender Information Value Date Recorded Sex Assigned at Not on file Legal Sex Female 12:50 PM [employer] Gender Identity Not on file Sexual Orientation Not on file documented as of this encounter Medications at Time of Discharge norgestim-eth estrad triphasic (TRI-LINYAH) 0.18/0.215/0.25 MG-35 MCG tabletIndications:E ncounter for surveillance of contraceptive pills Take 1 tablet by mouth daily 84 tablet 3 09/11/2021 documented as of this encounter Plan of Treatment Not on file documented as of this encounter Procedures Procedure Name Priority Date/Time Associated Diagnosis Comments [facility] US COMPREHENSIVE SINGLE Routine 05/10/2025 3:34 PM CDT related condition, antepartum documented in this encounter Results * [facility] US Comprehensive Single (05/10/2025 3:34 PM CDT) Anatomical Region Laterality Modality Ultrasound 05/10/2025 2:01 PM CDT Impressions 05/10/2025 4:35 PM CDT IMPRESSION ----- 1. Ward intrauterine at 36w 3d gestational age here for evaluation of anatomy. 2. No anomalies commonly detected by ultrasound or soft markers of aneuploidy were identified in the detailed anatomic survey within the limits of ultrasound, however some views were suboptimal, as described above. 3. Growth parameters and estimated weight were consistent with established dates. EFW 77%. 4. The amniotic fluid volume appeared increased, moderate polyhydramnios, with CLARA 31 cm. 5. BPP is reassuring, performed due to polyhydramnios. Narrative 05/10/2025 4:35 PM CDT Comprehensive ----- Pat. Name: TONIE VILLASEÑOR Study Date: 05/10/2025 2:01pm Pat. NO: [id number] Referring MD: YELENA GAFFNEY Site: Reporting Lead: Niyah Denny RDMS : 1990 Age: 35 ----- INDICATION ----- Polyhydramnios on outside ultrasound. History of gestational hypertension. METHOD ----- Transabdominal ultrasound examination. View: Suboptimal view: limited by late gestational age. ----- Ward . Number of fetuses: 1 DATING ----- Date Details Gest. age DOM LMP 08/28/2024 36 w + 3 d 06/04/2025 Previous U/S 10/29/2024 GA, GA 9 w + 1 d 36 w + 5 d 06/02/2025 U/S 05/10/2025 based upon AC, BPD, Femur, HC 37 w + 2 d 05/29/2025 Assigned dating based on the LMP, selected on 05/10/2025 36 w + 3 d 06/04/2025 GENERAL EVALUATION ----- Cardiac activity present. FHR 149 bpm. movements: present. Presentation: cephalic Placenta: Posterior, fundal, No Previa, > 2 cm from internal os Umbilical cord: Cord vessels: 3 vessel cord. Insertion site: normal insertion Amniotic fluid: Amount of AF: Polyhydramnios, Moderate. MVP 8.5 cm. CLARA 31.1 cm. Q1 9.2 cm, Q2 7.9 cm, Q3 6.5 cm, Q4 7.4 cm BIOMETRY ----- BPD 90.5 mm 36w 5d Hadlock OFD 117.2 mm -/- Nicolaides HC 330.5 mm 37w 4d Hadlock Cerebellum tr 48.7 mm -/- Nicolaides AC 335.9 mm 37w 3d 87% Hadlock Femur 72.9 mm 37w 2d Hadlock Humerus 61.9 mm 35w 6d Bere Weight Calculation: EFW 3,192 g 77% Hadlock EFW (lb,oz) 7 lb 1 oz EFW by Hadlock ([id number]) Head / Face / Neck Biometry: Soa Engineer 3.9 mm CM 9.8 mm Abdomen Biometry: Stomach ap 13.4 mm 23% Reid Stomach tr 10.1 mm <1% Reid Stomach long 26.9 mm 26% Reid ANATOMY ----- Heart / Thorax Ductal arch view: Tortuous ductus arteriosus The following structures appear normal: Head / Neck Cranium. Head size. Head shape. Lateral ventricles. Choroid plexus. Midline falx. Cavum septi pellucidi. Cerebellum. Cisterna magna. Parenchyma. Thalami. Vermis. Neck. Face Lips. Profile. Nose. Maxilla. Mandible. Orbits. Lens. Heart / Thorax 4-chamber view. RVOT view. LVOT view. 3-vessel view. 0-tbsusy-tmowvej view. Situs. Bicaval view. Superior vena cava. Inferior vena cava. Cardiac position. Cardiac size. Cardiac rhythm. Right lung. Left lung. Diaphragm. Abdomen Abdom. wall. Cord insertion. Stomach. Kidneys. Bladder. Liver. Bowel. Genitals. Spine Cervical spine. Thoracic spine. Lumbar spine. Sacral spine. Extremities / Skeleton Arms. Right arm. Right hand. Left arm. Left hand. Legs. Right leg. Right foot. Left leg. Left foot. The following structures could not be adequately visualized: Heart / Thorax Aortic arch view. DOPPLER ----- Ductus Arteriosus: normal PI 2.47 RI 0.91 PS -117.67 cm/s ED -11.14 cm/s TAmax -43.17 cm/s MD -9.92 cm/s S / D 10.56 HR 147 bpm MATERNAL STRUCTURES ----- Cervix Suboptimal Right Ovary Not visualized Left Ovary Not visualized BIOPHYSICAL PROFILE ----- 2: breathing movements 2: Gross body movements 2: tone 2: Amniotic fluid volume 8/8 Biophysical profile score Interpretation: normal RECOMMENDATION ----- Thank you for referring your patient for ultrasound assessment. I discussed the findings on today's ultrasound with the patient. I reviewed the limitations of ultrasound both in detecting aneuploidy and structural abnormalities. Ultrasound, when views completed, can routinely detect 80-90% of structural abnormalities. She had low risk cell free DNA for genetic screening this prior to her transfer of care from [facility]. She was noted to have severe polyhydramnios at her primary OB clinic in [place]. We discussed the finding of moderate polyhydramnios on ultrasound today. She reports being diagnosed with severe polyhydramnios on ultrasound with her primary OB care team. She had glucose testing which was normal. We discussed that based on our measurements today her polyhydramnios is considered to be moderate. We discussed that mild polyhydramnios is often idiopathic or related to underlying diabetes. We discussed that worsening degrees of polyhydramnios (moderate or severe) are more likely to be associated with underlying abnormalities. We discussed that etiologies for polyhydramnios include abnormalities which impair swallowing such as central nervous system abnormalities, cleft palate, micrognathia, abnormalities that compress the trachea, gastrointestinal obstructions including TE fistula, or muscular disorders such as myotonic dystrophy. None of the anomalies commonly associated with polyhydramnios have been identified. It is important to note that the FOB's mother had significant polyhydramnios when she was with him, and in maintenance craftsman around age 5 years, he was diagnosed with absence of the lower esophageal sphincter. It is very possible that this is a contributor to the findings that we see in this . Pediatrics should be notified of this history at the time of . After shared decision making about next steps and best delivery location, we have come up with the following plan: 1. BPP at our [facility] clinic in [place] in one week - - if severe polyhydramnios at that time, our [facility] team will need to coordinate delivery with the [facility] team to allow for proximately to NICU expertise. The family prefers this location over [facility] for proximity - moderate polyhydramnios - delivery can be facilitated at [place], with pediatrics staff present - mild polyhydramnios - delivery can be facilitated at [place], with pediatrics notified of US findings and family history after Return to primary provider for continued care. If you have questions regarding today's evaluation or if we can be of further service, please contact the [facility]. anomalies may be present but not detected I spent a total of 47 minutes (excluding the ultrasound interpretation) on the date of this encounter including preparing to see the patient (reviewing medical records/tests), in direct hnha-py-hqum contact with the patient counseling and discussing the plan of care, documenting the visit in the electronic medical record, and communicating with other health intensive care medicine specialist and/or care coordination. Procedure Note Keshia Jackson MD - 05/10/2025 Comprehensive ----- Pat. Name: TONIE VILLASEÑOR Study Date: 05/10/2025 2:01pm Pat. NO: [id number] Referring MD: YELENA GAFFNEY Site: Reporting Lead: Niyah Denny RDMS : 1990 Age: 35 ----- INDICATION ----- Polyhydramnios on outside ultrasound. History of gestational hypertension. METHOD ----- Transabdominal ultrasound examination. View: Suboptimal view: limited bylate gestational age. ----- Ward . Number of fetuses: 1 DATING ----- DateDetailsGest. age DOM LMP w + 3 d 06/04/2025 Previous U/S 10/29/2024 GA, GA9 w + 1 d36 w + 5 d 06/02/2025 U/S 05/10/2025ased upon AC, BPD, Femur, HC37 w + 2 d 05/29/2025 Assigned dating based on the LMP, selected on w + 3 d 06/04/2025 GENERAL EVALUATION ----- Cardiac activity present. FHR 149 bpm. movements: present.Presentation: cephalic Placenta: Posterior, fundal, No Previa, > 2 cm from internal os Umbilical cord: Cord vessels: 3 vessel cord. Insertion site: normalinsertion Amniotic fluid: Amount of AF: Polyhydramnios, Moderate. MVP 8.5 cm. AFI31.1 cm. Q1 9.2 cm, Q2 7.9 cm, Q3 6.5 cm, Q4 7.4 cm BIOMETRY ----- BPD 90.5mm 36w 5dHadlock OFD 117.2mm -/-Nicolaides HC 330.5mm 37w 4dHadlock Cerebellum tr 48.7mm -/-Nicolaides AC 335.9mm 37w 3d 87%Hadlock Femur 72.9mm 37w 2dHadlock Humerus 61.9mm 35w 6dJeanty Weight Calculation: EFW 3,192g 77%Hadlock EFW (lb,oz) 7 lb 1oz EFW by Hadlock([id number]) Head / Face / Neck Biometry: Soa Engineer 3.9mm CM 9.8mm Abdomen Biometry: Stomach ap 13.4mm 23%Reid Stomach tr 10.1mm <1%Reid Stomach long 26.9mm 26%Reid ANATOMY ----- Heart / Thorax Ductal arch view: Tortuous ductusarteriosus The following structures appear normal: Head / Neck Cranium. Head size. Head shape.Lateral ventricles. Choroid plexus. Midline falx. Cavum septi pellucidi.Cerebellum. Cisterna magna. Parenchyma. Thalami. Vermis. Neck. Face Lips. Profile. Nose. Maxilla.Mandible. Orbits. Lens. Heart / Thorax 4-chamber view. RVOT view. LVOT view.3-vessel view. 2-gtpllm-tpfiejm view. Situs. Bicaval view. Superior venacava. Inferior vena cava. Cardiac position. Cardiac size.Cardiac rhythm. Right lung. Left lung.Diaphragm. Abdomen Abdom. wall. Cord insertion. Stomach.Kidneys. Bladder. Liver. Bowel. Genitals. Spine Cervical spine. Thoracic spine.Lumbar spine. Sacral spine. Extremities / Skeleton Arms. Right arm. Right hand. Left arm.Left hand. Legs. Right leg. Right foot. Left leg. Left foot. The following structures could not be adequately visualized: Heart / Thorax Aortic arch view. DOPPLER ----- Ductus Arteriosus: normal PI 2.47 RI 0.91 PS -117.67cm/s ED -11.14cm/s TAmax -43.17cm/s MD -9.92cm/s S / D 10.56 HR 147bpm MATERNAL STRUCTURES ----- Cervix Suboptimal Right Ovary Not visualized Left Ovary Not visualized BIOPHYSICAL PROFILE ----- 2: breathing movements 2: Gross body movements 2: tone 2: Amniotic fluid volume 03/11 Biophysical profile score Interpretation: normal RECOMMENDATION ----- Thank you for referring your patient for ultrasound assessment. I discussed the findings on today's ultrasound with the patient. Ireviewed the limitations of ultrasound both in detecting aneuploidy andstructural abnormalities. Ultrasound, when views completed, can routinely detect 80-90% of structuralabnormalities. She had low risk cell free DNA for genetic screeningthis prior to her transfer of care from [facility]. She was noted to have severe polyhydramnios at her primary OB clinic [facility]. We discussed the finding of moderate polyhydramnios on ultrasound today.She reports being diagnosed with severe polyhydramnios on ultrasound withher primary OB care team. She had glucose testing which was normal. We discussed thatbased on our measurements today her polyhydramnios is considered to bemoderate. We discussed that mild polyhydramnios is often idiopathic or related tounderlying diabetes. We discussed that worsening degrees of polyhydramnios(moderate or severe) are more likely to be associated with underlying abnormalities. Wediscussed that etiologies for polyhydramnios include abnormalities whichimpair swallowing such as central nervous system abnormalities, cleft palate, micrognathia,abnormalities that compress the trachea, gastrointestinal obstructionsincluding TE fistula, or muscular disorders such as myotonic dystrophy. None of the anomalies commonly associated with polyhydramnios have beenidentified. It is important to note that the FOB's mother had significantpolyhydramnios when she was with him, and in early childhoodaround age 6 years, he was diagnosed with absence of the lower esophageal sphincter. It is verypossible that this is a contributor to the findings that we see in thispregnancy. Pediatrics should be notified of this history at the time of . After shared decision making about next steps and best delivery location,we have come up with the following plan: 1. BPP at our [facility] clinic in [place] in one week - - if severe polyhydramnios at that time, our [facility] team will need tocoordinate delivery with the [facility] team to allow forproximately to NICU expertise. The family prefers this location over [facility] for proximity - moderate polyhydramnios - delivery can be facilitated at [place],with pediatrics staff present - mild polyhydramnios - delivery can be facilitated at [place], withpediatrics notified of US findings and family history after Return to primary provider for continued care. If you have questions regarding today's evaluation or if we can be offurther service, please contact the [facility]. anomalies may be present but not detected I spent a total of 47 minutes (excluding the ultrasound interpretation) onthe date of this encounter including preparing to see the patient(reviewing medical records/tests), in direct uzmx-la-ewhe contact with the patient counseling and discussingthe plan of care, documenting the visit in the electronic medical record,and communicating with other health intensive care medicine specialist and/or care coordination. IMPRESSION ----- 1. Ward intrauterine at 36w 3d gestational age here forevaluation of anatomy. 2. No anomalies commonly detected by ultrasound or soft markers ofaneuploidy were identified in the detailed anatomic survey withinthe limits of ultrasound, however some views were suboptimal, as described above. 3. Growth parameters and estimated weight were consistent withestablished dates. EFW 77%. 4. The amniotic fluid volume appeared increased, moderate polyhydramnios,with CLARA 31 cm. 5. BPP is reassuring, performed due to polyhydramnios. us Yelena Gaffney APRN, CNM [facility] ORDERABLES Edit ed Result - Final documented in this encounter Visit Diagnoses Diagnosis related condition, antepartum documented in this encounter Care Teams Director Clinical Research Relationship Specialty Start Date End Date Prudence Sauceda APRN CNP [address] [place] [id number] PCP - General Family Medicine 03/07/21 documented as of this encounter
--- OUTSIDE RECORDS SUMMARY | 2025-05-10 14:30 | XMS_ITS | Encounter Summary ---
Author Organization [place] Address [address] [place] [address] Care Team Providers Care Developer Prover Upholstering Name Role Phone Prudence Sauceda APRN [facility] Primary Care Provider Reason for Referral * Diagnostic Imaging Ultrasound (Routine) - Pending Review Specialty Diagnoses / Procedures Referred By Contac t Referred To Contact Radiology. Diagnoses Polyhydramnios affecting Procedures [facility] Single Keshia Jackson MD [address] [place] [address] Phone: tel: fax: Referral ID Status Reason Start Date Expiration Date V isits Requested Visits Authorized [id number] Pending Review 05/10/2025 05/10/2026 1 1 Reason for Visit * Reason Comments Ultrasound L2-new onset polyhyd ramnios Encounter Details Date Type Department Care Team (Late st Contact Info) Description 05/10/2025 2:30 PM CDT Office Visit [facility] M[facility] Medicine [facility] [place] [address] [place] [address] Que Gaffney APRN [facility] [address] [place] [address] Keshia Jackson MD [address] [place] [address] Polyhydramnios affecting (Primary Dx) Social History Tobacco Use Types Packs/Day Years [...] on file 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 Thank you for referring your patient for ultrasound assessment. I discussed the findings on today's ultrasound with the patient. I reviewed the limitations of ultrasound both in detecting aneuploidy and structural abnormalities. Ultrasound, when views completed, can routinely detect 80-90% of structural abnormalities. She had low risk cell free DNA for genetic screening this prior to her transfer of care from [facility]. She was noted to have severe polyhydramnios at her primary OB clinic in [place]. We discussed the finding of moderate polyhydramnios [...] underlying abnormalities. We discussed that etiologies for polyhydramniosinclude abnormalities which impair swallowing such as central nervous system abnormalities, cleft palate, micrognathia, abnormalities that compress the trachea, gastrointestinal obstructions including TE fistula, or muscular disorders such as myotonic dystrophy. None of the anomalies commonly associated with polyhydramnios have been identified. It is important to note that the FOB's mother had significant polyhydramnios when she was with him, and in tracer powder blender around age 6 years, he was diagnosed [...] the following plan: 1. BPP at our [facility] clinic in [place] in one week - - if severe polyhydramnios at that time, our [facility] team will need to coordinate delivery with the [facility] team to allow for proximately to NICU expertise. The family prefers this location over [facility] for proximity - moderate polyhydramnios - delivery can be facilitated at [place], with pediatrics staff present - mild polyhydramnios - delivery can be facilitated at [place], with pediatrics notified of US findings and [...] the patient (reviewing medical records/tests), in direct [id number] contact with the patient counseling and discussing the plan of care, documenting the visit in the electronic medical record, and communicating with other health skin care instructor and/or care coordination. Keshia Jackson MD Maternal Medicine documented in this encounter Nursing Notes * Aundrea Mattson, RN - 05/10/2025 2:30 PM CDT Patient presents to [facility] for L2 at 36w3d due to new onset polyhydramnios. Positive movement. Denies LOF, vaginal bleeding or cramping/contractions. SBAR given to [facility] , see their note in Epic. documented in this encounter Plan of Treatment Not on file documented as of this encounter Results * MFM BPP Single (05/16/2025 9:49 AM CDT) Anatomical Region Laterality Modality Ultrasound 05/16/2025 9:21 AM CDT Impressions 05/16/2025 10:15 AM CDT IMPRESSION ----- Patient is here for antepartum testing secondary to polyhydramnios. 1) Intrauterine at 37 2/7 weeks gestational age. 2) The BPP (performed for polyhydramnios) is reassuring. 3) The amniotic fluid volume appears increased and consistent with moderate polyhydramnios and stable from previous assessment. Narrative 05/16/2025 10:15 AM CDT BPP ----- Pat. Name: TONIE VILLASEÑOR Study Date: 05/16/2025 9:21am Pat. NO: [id number] Referring MD: QUE GAFFNEY Site: Academic Physician: Andie Marquez RDMS : 1990 Age: 35 ----- INDICATION ----- Moderate polyhydramnios History of gestational hypertension METHOD ----- Transabdominal ultrasound examination. View: Sufficient ----- Ward . Number of fetuses: 1 DATING ----- Date Details Gest. age DOM LMP 08/28/2024 37 w + 2 d 06/04/2025 Previous U/S 10/29/2024 GA, GA 9 w + 1 d 37 w + 4 d 06/02/2025 Assigned dating based on the LMP, selected on 05/16/2025 37 w + 2 d 06/04/2025 GENERAL EVALUATION ----- Cardiac activity present. FHR 140 bpm. movements: visualized. Presentation: cephalic Placenta: posterior, left Umbilical cord: previously studied AMNIOTIC FLUID ASSESSMENT ----- Amount of AF: Moderate, Polyhydramnios MVP 11.6 cm. CLARA 33.5 cm. Q1 7.3 cm, Q2 8.0 cm, Q3 6.6 cm, Q4 11.6 cm BIOPHYSICAL PROFILE ----- 2: breathing movements 2: Gross body movements 2: tone 2: Amniotic fluid volume 8/8 Biophysical profile score Interpretation: normal RECOMMENDATION ----- Continue surveillance with weekly assessment with BPP and delivery at 39 0/7 to 39 6/7 weeks with PCP. Thank you for the opportunity to participate in the care of this patient. If you have questions regarding today's evaluation or if we can be of further service, please contact the Maternal- Medicine Center. anomalies may be present but not detected Procedure Note Anthony Brown MD - 05/16/2025 BPP ----- Pat. Name: TONIE VILLASEÑOR Study Date: 05/16/2025 9:21am Pat. NO: [id number] Referring MD: QUE GAFFNEY Site: Academic Physician: Andie Marquez RDMS : 1990 Age: 35 ----- INDICATION ----- Moderate polyhydramnios History of gestational hypertension METHOD ----- Transabdominal ultrasound examination. View: Sufficient ----- Ward . Number of fetuses: 1 DATING ----- DateDetailsGest. age DOM LMP w + 2 d 06/04/2025 Previous U/S 10/29/2024 GA, GA9 w + 1 d37 w + 4 d 06/02/2025 Assigned dating based on the LMP, selected on w + 2 d 06/04/2025 GENERAL EVALUATION ----- Cardiac activity present. FHR 140 bpm. movements: visualized.Presentation: cephalic Placenta: posterior, left Umbilical cord: previously studied AMNIOTIC FLUID ASSESSMENT ----- Amount of AF: Moderate, Polyhydramnios MVP 11.6 cm. CLARA 33.5 cm. Q1 7.3 cm, Q2 8.0 cm, Q3 6.6 cm, Q4 11.6 cm BIOPHYSICAL PROFILE ----- 2: breathing movements 2: Gross body movements 2: tone 2: Amniotic fluid volume 8/8 Biophysical profile score Interpretation: normal RECOMMENDATION ----- Continue surveillance with weekly assessment with BPP anddelivery at 39 0/7 to 39 6/7 weeks with PCP. Thank you for the opportunity to participate in the care of this patient.If you have questions regarding today's evaluation or if we can be offurther service, please contact the Maternal- Medicine Center. anomalies may be present but not detected IMPRESSION ----- Patient is here for antepartum testing secondary to polyhydramnios. 1) Intrauterine at 37 2/7 weeks gestational age. 2) The BPP (performed for polyhydramnios) is reassuring. 3) The amniotic fluid volume appears increased and consistent withmoderate polyhydramnios and stable from previous assessment. us Keshia Jackson MD [facility] US ORDERABLES Edit ed Result - Final documented in this encounter Visit Diagnoses Diagnosis Polyhydramnios affecting - Primary Polyhydramnios affecting documented in this encounter Care Teams Developer Prover Upholstering Relationship Specialty Start Date End Date Prudence Sauceda APRN [employer] [address] [place] [id number] PCP - General Family Medicine 03/07/21 documented as of this encounter
--- OUTSIDE RECORDS SUMMARY | 2025-05-16 09:21 | XMS_ITS | Encounter Summary ---
Author Organization [place] Address [address] [place] [address] Care Team Providers Care Region Manager Name Role Phone Prudence Sauceda APRN MOTOR BUILDER WINDER Primary Care Provider Reason for Referral * Diagnostic Imaging Ultrasound (Routine) - Pending Review Specialty Diagnoses / Procedures Referred By Wayne cruz Referred To Contact Radiology. Diagnoses Polyhydramnios affecting Procedures [facility] Keshia Snow MD [address] [place] [address] Phone: tel: fax: Referral ID Status Reason Start Date Expiration Date V isits Requested Visits Authorized [id number] Pending Review 05/10/2025 05/10/2026 1 1 Reason for Visit * Diagnostic Imaging Ultrasound (Routine) - Pending Review Specialty Diagnoses / Procedures Referred By Wayne cruz Referred To Contact Radiology. Diagnoses Polyhydramnios affecting Procedures [facility] BPKeshia Llanes MD [address] [place] [address] Phone: tel: fax: Referral ID Status Reason Start Date Expiration Date V isits Requested Visits Authorized [id number] Pending Review 05/10/2025 05/10/2026 1 1 Encounter Details Date Type Department Care Team (Latest Contact Info) Description 05/16/2025 9:21 AM CDT - 05/16/2025 11:59 PM CDT Hospital Encounter 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 NO: [id number] Referring MD: QUE GAFFNEY Site: Client Engagement Specialist: Andie Marquez RDMS : 1990 Age: 35 [...] VILLASEÑOR Study Date: 05/16/2025 9:21am Pat. NO: [id number] Referring MD: QUE GAFFNEY Site: Client Engagement Specialist: Andie Marquez RDMS : 1990 Age: 35 [...] from previous assessment. us Keshia Jackson MD [facility] ORDERABLES Edit ed Result - Final documented in this encounter Visit Diagnoses Diagnosis Polyhydramnios affecting documented in this encounter Care Teams Region Manager Relationship Specialty Start Date End Date Prudence Sauceda APRN [employer] BUILDER WIND[employer] [address] [place] [phone] PCP - General Family Medicine 03/07/21 documented as of this encounter
--- OUTSIDE RECORDS SUMMARY | 2025-05-16 10:00 | XMS_ITS | Encounter Summary ---
Author Organization [place] Address [facility] [facility] [place] [address] Care Team Providers Care Functional Consultant Name Role Phone Prudence Sauceda Nataliia FINK MOTION STUDY ANALYST Primary Care Provider Reason for Visit * Reason Comments Ultrasound BPP-moderate poly Encounter Details Date Type Department Care Team (Latest Contact Info) Description 05/16/2025 10:00 AM CDT Office Visit [facility] M[facility] Medicine [facility] [place] [address] [facility] [address] 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 Anthony Brown M.D. documented in this encounter Nursing Notes * Aundrea Mattson, RN - 05/16/2025 10:00 AM CDT Patient presents to [facility] for BPP at 37w2d due to moderate poly. Positive movement. Denies LOF,vaginal bleeding or cramping/contractions. SBAR given to [facility] MD, see their note in Epic. documented in this encounter Plan of Treatment Not on file documented as of this encounter Visit Diagnoses Diagnosis Polyhydramnios affecting - Primary documented in this encounter Care Teams Functional Consultant Relationship Specialty Start Date End Date Prudence Sauceda APRN MOTION STUDY ANALYST [address] [place] [phone] PCP - General Family Medicine 03/07/21 documented as of this encounter
--- OUTSIDE RECORDS SUMMARY | 2025-05-30 21:11 | XMS_ITS | Encounter Summary ---
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
--- OUTSIDE RECORDS SUMMARY | 2025-05-30 21:11 | XMS_ITS | Encounter Summary ---
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
--- OUTSIDE RECORDS SUMMARY | 2025-05-30 21:11 | XMS_ITS | Encounter Summary ---
Author Organization [facility] Address [address] [place] [address] Care Team Providers Care Cash Control Specialist Name Role Phone Prudence Sauceda APRN MACHINE OPERATOR HELPER Primary Care Provider Reason for Referral * Diagnostic Imaging Ultrasound (Routine) - Pending Review Specialty Diagnoses / Procedures Referred By Contac t Referred To Contact Radiology. Diagnoses related condition, antepartum Procedures [facility] US Comprehensive Single Que Gaffney APRN [facility] [address] [place] [address] Phone: tel: fax: Referral ID Status Reason Start Date Expiration Date V isits Requested Visits Authorized [id number] Pending Review 05/09/2025 05/09/2026 1 1 * Consultation (Routine: Next available opening) - Pending Review Specialty Diagnoses / Procedures Referred By Contac t Referred To Contact Diagnoses related condition, antepartum Que Gaffney APRN [facility] [address] [place] [address] Phone: tel: fax: [facility] [place] [address] [place] [address] Phone: tel: fax: Referral ID Status Reason Start Date Expiration Date V isits Requested Visits Authorized [id number] Pending Review 05/09/2025 05/09/2026 1 1 Question Answer Preferred Location: [facility] - [place] Working Due Date: 06/04/2025 US Ordering Instructions: If US ONLY is requested, select appropriate US Order and DO NOT order MFM Consult. Reason for Referral: Ultrasound Ultrasound - Includes Interpretation/Recommendations (*indicates inclusion of genetic counseling): Comprehensive US (>= 18w0d GA) Indication (* indicates inclusion of genetic counseling): Abnormal Ultrasound Findings *(enter details in Comments) - New onset severe polyhydramnios Comments There is no height or weight on file to calculate BMI. >> Patient may proceed with recommendations for further testing as directed by the Maternal Medicine Specialist >> >> If requesting Echo: MFM will determine appropriate location for exam due to indication. Please be aware that coverage of these services is subject to the terms and limitations of your health insurance plan. Call member services at your health plan with any benefit or coverage questions. Encounter Details Date Type Department Care Team (Late st Contact Info) Description 05/09/[address] 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 NO: [id number] Referring MD: QUE GAFFNEY Site: [place]: Niyah Denny RDMS : 1990 Age: 35 [...] 7 lb 1 oz EFW by Hadlock ([id number]) Head / Face / Neck Biometry: Soils Analyst 3.9 mm CM 9.8 mm Abdomen Biometry: [...] view. RVOT view. LVOT view. 3-vessel view. 4-uasacc-jxzsrft view. Situs. Bicaval view. Superior vena cava. [...] prior to her transfer of care from [facility]. She was noted to have severe polyhydramnios at her primary OB clinic in [place]. 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 BPP at our [facility] clinic in [place] in one week - - if severe polyhydramnios at that time, our [facility] team will need to coordinate delivery with the [facility] team to allow for proximately to NICU expertise. The family prefers this location over [facility] for proximity - moderate polyhydramnios - delivery can be facilitated at [place], with pediatrics staff present - mild polyhydramnios - delivery can be facilitated at [place], with pediatrics notified of US findings and [...] the patient (reviewing medical records/tests), in direct [id number] contact with the patient counseling and discussing the plan of care, documenting the visit in the electronic medical record, and communicating with other health care management assistant and/or care coordination. Procedure Note Keshia Jackson MD - 05/10/2025 Comprehensive ----- Pat. Name: TONIE VILLASEÑOR Study Date: 05/10/2025 2:01pm Pat. NO: [id number] Referring MD: QUE GAFFNEY Site: [place]: Niyah Denny RDMS : 1990 Age: 35 ----- INDICATION ----- Polyhydramnios on outside ultrasound. History of gestational hypertension. METHOD ----- Transabdominal ultrasound examination. View: Suboptimal view: limited bylate gestational age. ----- Ward . Number of fetuses: 1 DATING ----- DateDetailsGest. age DOM LMP w + 3 d 06/04/2025 Previous U/S 10/29/2024 GA, GA9 w + 1 d36 w + 5 d 06/02/2025 U/S 5based upon AC, BPD, Femur, HC37 w + 2 d 05/29/2025 Assigned dating based on the LMP, selected on 536w + 3 d 06/04/2025 GENERAL EVALUATION ----- [...] EFW (lb,oz) 7 lb 1oz EFW by Hadlock([id number]) Head / Face / Neck Biometry: Soils Analyst 3.9mm CM 9.8mm Abdomen Biometry: Stomach ap 13.4mm 23%[facility] Stomach tr 10.1mm <1%[facility] Stomach long 26.9mm 26%[facility] ANATOMY ----- Heart / Thorax Ductal arch view: Tortuous ductusarteriosus The following structures appear normal: Head / Neck Cranium. Head size. Head shape.Lateral ventricles. Choroid plexus. Midline falx. Cavum septi pellucidi.Cerebellum. Cisterna magna. Parenchyma. Thalami. Vermis. Neck. Face Lips. Profile. Nose. Maxilla.Mandible. Orbits. Lens. Heart / Thorax 4-chamber view. RVOT view. LVOT view.3-vessel view. 8-roxyeb-pslfxkh view. Situs. Bicaval view. Superior venacava. Inferior [...] prior to her transfer of care from [facility]. She was noted to have severe polyhydramnios at her primary clinic [facility]. We discussed the finding of moderate [...] the following plan: 1. BPP at our MFM clinic in [place] in one week - - if severe polyhydramnios at that time, our MFM team will need tocoordinate delivery with the [facility] team to allow forproximately to NICU expertise. The family prefers this location over [facility] for proximity - moderate polyhydramnios - delivery can be facilitated at [place],with pediatrics staff present - mild polyhydramnios - delivery can be facilitated at [place], withpediatrics notified of US findings and family [...] see the patient(reviewing medical records/tests), in direct [id number] contact with the patient counseling and discussingthe plan of care, documenting the visit in the electronic medical record,and communicating with other health care management assistant and/or care coordination. IMPRESSION ----- 1. Ward [...] is reassuring, performed due to polyhydramnios. us Que Gaffney APRN, CNM [facility] ORDERABLES Edit ed Result - Final documented in this encounter Visit Diagnoses Diagnosis related condition, antepartum- Primary related condition, antepartum documented in this encounter Care Teams Cash Control Specialist Relationship Specialty Start Date End Date Prudence Sauceda APRN MACHINE OPERATOR HELPER [address] [place] [phone] PCP - General Family Medicine 03/07/21 documented as of this encounter
--- OUTSIDE RECORDS SUMMARY | 2025-05-30 21:11 | XMS_ITS | Clinical Summary ---
Author Organization [facility] Address [address] [place] [address] Care Team Providers Care Chlorine Cell Tender Name Role Phone RavenPrudence miller Nataliia FINK FIRE PREVENTION ENGINEER Primary Care Provider Allergies Active Allergy Reactions Criticality Noted Date Comments Amoxicillin Rash Low 10/16/2006 Medications norgestim-eth estrad triphasic (TRI-LINYAH) 0.18/0.215/0.25 MG-35 MCG tabletIndications: Encounter for surveillance of contraceptive pills Take 1 tablet by mouth daily 84 tablet 3 2 Active Active Problems Estimated Date of Delivery Comme nts Yes 06/04/2025 Based on last me nstrual period of 08/28/2024 No known active problems Encounters Date Type Department Care Team Description 05/16/2025 10:00 AM CDT Office Visit [facility] Maternal Medicine [facility] [address] [place] [phone] Anthony Brown MD Polyhydramnios affecting (Primary Dx) 05/16/2025 9:21 AM CDT - 05/16/2025 11:59 PM CDT Hospital Encounter [facility] Medicine [facility] [address] [place] [phone] Anthony Brown MD Polyhydramnios affecting Discharge Disposition: Home or Self Care 05/16/2025 Travel 05/10/2025 2:30 PM CDT Office Visit [facility] Maternal Medicine [facility] [address] [place] [address] Que Madrid APRN CNM Jones, Cresta Wedel, MD Polyhydramnios affecting (Primary Dx) 05/10/2025 2:00 PM CDT - 05/10/2025 11:59 PM CDT Hospital Encounter [facility] Medicine [facility] [address] [place] [address] Que Madrid APRN CNM Jones, Cresta Wedel, MD related condition, antepartum Discharge Disposition: Home or Self Care 05/10/2025 Travel 05/09/2025 Medical Correspondence [facility] Information Management [address] [place] [address] Scan, Non-Provider 05/09/[address] [facility] Maternal Medicine [facility] [address] [place] [address] Aundrea Mattson RN Ultrasound (L2-new onset polyhydramnios) 05/09/2025 Transcribe Orders [facility] Medicine [facility] [address] [place] [address] Que Madrid APRN CNM related condition, antepartum (Primary Dx) from Last 3 Months Immunizations Immunization Administration Dates Next Due DT (PEDS <7y) 02/14/2003 DTAP (<7y) 03/08/1997, 3,1991,07/14,1991 Flu, Unspecified 05/30/2017,06/12/2016 [id number] Novel Flu 11/01/2009 HIB(PRP-OMP)(PedvaxHIB) 09/20/1992,1991, HepB, Unspecified 12/27/2003,03/21/2003,02/15/20 03 Hepatitis B, Adult (Energix-B/Recombivax HB) 12/26/2013,03/21/2003,02/14/2003 Influenza (H1N1) 11/01/2009 Influenza (IIV3) PF 05/18/2016,05/18/2013 Influenza (prior to 2023) 05/21/2013 Influenza Vaccine >6 months,quad, PF ,06/11/2019,05/29/2015,05/24 MMR (MMRII) 02/14/2003,09/20/1992 Mantoux Tuberculin Skin Test 01/13/2013 Meningococcal (Menomune ) 11/01/2009 Meningococcal ACWY (Menactra ) 11/01/2009 OPV, unspecified 03/08/1997, 3,1991,05/18 TD,PF 7+ (Tenivac) 02/14/2003 TDAP Vaccine (Adacel) 01/13/2013 Family History Medical History Relation Comments Hyperlipidemia Father Cancer Maternal Grandmother Diabetes Paternal Grandmother Hyperlipidemia Sister Relation Status Comments Father Maternal Grandmother Paternal Grandmother Sister Social History Tobacco Use Types Packs/Day Years [...] on file Legal Sex Female 12:50 PM CORE WORKER Gender Identity Not on file Sexual Orientation Not on file Last Filed Vital Signs Vital Sign Reading Time Taken Comments Blood Pressure 112/72 09/11/2021 4:38 PM CORE WORKER Pulse 97 09/11/2021 4:38 PM CORE WORKER Temperature 36.6 C (97.9 F) 09/11/2021 4:38 PM CORE WORKER Respiratory Rate 16 09/11/2021 4:38 PM CORE WORKER Oxygen Saturation 97% 09/11/2021 4:38 PM CORE WORKER Inhaled Oxygen Concentration - - Weight 54.9 kg (121 lb) 09/11/2021 4:38 PM CORE WORKER Height 160 cm (5' 3) 09/11/2021 4:38 PM CORE WORKER Body Mass Index 21.43 09/11/2021 4:38 PM CORE WORKER Plan of Treatment Health Maintenance Due Date Last Done Comments ANNUAL REVIEW OF HM ORDERS 09/11/2022 09/11/2021 YEARLY PREVENTIVE VISIT 09/11/2022 09/11/19, 12/07/2018, 04/01/2007 PHQ-2 (once per calendar year) 2024 09/11/2021, 12/07/2018 HPV TEST 09/11/2024 09/11/2021 PAP 09/11/2024 09/11/2021, 12/07/2018 MATERNAL SCREENING DISCUSSION 11/06/2024 OBGCT (OB) 02/12/2025 TDAP VACCINE () 03/05/2025 COVID-19 VACCINE ( season) 2025 05/25/2021, 05/04/2021 INFLUENZA VACCINE (#1) 2025 , 06/03/2023, 04/26/2021, Additional history exists GROUP B STREP SCREENING 05/07/2025 ADVANCE CARE PLANNING 09/11/2026 09/11/2021 DTAP/TDAP/TD VACCINE (9 - Td or Tdap) 04/05/2035 04/05/2025, 07/16/2023, 01/13/2013, Additional history exists ZOSTER VACCINE (1 of 2) 2041 MENINGITIS VACCINE Completed 11/01/2009, 11/01/2009 HEPATITIS B VACCINE Completed 12/26/2013, 12/27/2003, 03/21/2003, Additional history exists HEPATITIS C SCREENING Completed 09/14/2021 HIV SCREENING Completed 09/14/2021 RSV VACCINE Completed 06/23/2023 HPV VACCINE (No Doses Required) Completed PNEUMOCOCCAL VACCINE: PEDIATRICS (0 to 5 YEARS) AND AT-RISK PATIENTS (6 to 49 YEARS) Aged Out No longer eligible based on patient's age to complete this topic Procedures Procedure Name Priority Date/Time Associated Diagnosis Comments [facility] BPP SINGLE Routine 05/16/2025 9:49 AM CDT Polyhydramnios affecting [facility] COMPREHENSIVE SINGLE Routine 05/10/2025 3:34 PM CDT related condition, antepartum HIV ANTIGEN ANTIBODY COMBO Routine 09/14/2021 7:06 AM CORE WORKER Screening for HIV (human immunodeficiency virus) HEPATITIS C SCREEN REFLEX TO HCV RNA QUANT AND GENOTYPE Routine 09/14/2021 7:06 AM CORE WORKER Need for hepatitis C screening test GYNECOLOGIC CYTOLOGY Routine 09/11/2021 4:51 PM CORE WORKER Cervical cancer screening HPV HIGH RISK TYPES DNA CERVICAL Routine 09/11/2021 4:51 PM CORE WORKER Cervical cancer screening from Last 3 Months or Most Recently Relevant to Health Maintenance Results * [facility] BPP Single (05/16/2025 9:49 AM CDT) [...] VILLASEÑOR Study Date: 05/16/2025 9:21am Pat. NO: [id number] Referring MD: QUE MADRID Site: Nuclear Powerplant Mechanic: Andie MarquezSHANNON : 1990 Age: 35 ----- INDICATION ----- [...] VILLASEÑOR Study Date: 05/16/2025 9:21am Pat. NO: [id number] Referring MD: QUE MADRID Site: Nuclear Powerplant Mechanic: Andie MarquezSHANNON : 1990 Age: 35 ----- INDICATION ----- [...] from previous assessment. us Keshia Jackson MD [facility] ORDERABLES Edit ed Result - Final * [facility] Comprehensive Single (05/10/2025 3:34 PM CDT) Anatomical [...] VILLASEÑOR Study Date: 05/10/2025 2:01pm Pat. NO: [id number] Referring MD: QUE MADRID Site: Nuclear Powerplant Mechanic: Niyah Denny RDMS : 1990 Age: 35 [...] 7 lb 1 oz EFW by Hadlock ([id number]) Head / Face / Neck Biometry: Electrical Engineering Technician 3.9 mm CM 9.8 mm Abdomen Biometry: [...] view. RVOT view. LVOT view. 3-vessel view. 3-zowaqs-dhwxiks view. Situs. Bicaval view. Superior vena cava. [...] prior to her transfer of care from [facility]. She was noted to have severe polyhydramnios at her primary OB clinic in [place]. 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 BPP at our [facility] clinic in [place] in one week - - if severe polyhydramnios at that time, our [facility] team will need to coordinate delivery with the [facility] team to allow for proximately to NICU expertise. The family prefers this location over [facility] for proximity - moderate polyhydramnios - delivery can be facilitated at [place], with pediatrics staff present - mild polyhydramnios - delivery can be facilitated at [place], with pediatrics notified of US findings and [...] the patient (reviewing medical records/tests), in direct uqsj-mr-ghjn contact with the patient counseling and discussing the plan of care, documenting the visit in the electronic medical record, and communicating with other health healthcare management consultant and/or care coordination. Procedure Note Keshia Jackson MD - 05/10/2025 Comprehensive ----- Pat. Name: TONIE VILLASEÑOR Study Date: 05/10/2025 2:01pm Pat. NO: [id number] Referring MD: QUE MADRID Site: Nuclear Powerplant Mechanic: Niyah Denny RDMS : 1990 Age: 35 [...] EFW (lb,oz) 7 lb 1oz EFW by Hadlock([id number]) Head / Face / Neck Biometry: Electrical Engineering Technician 3.9mm CM 9.8mm Abdomen Biometry: Stomach ap [...] 4-chamber view. RVOT view. LVOT view.3-vessel view. 3-vbwmxt-npjqlhw view. Situs. Bicaval view. Superior venacava. Inferior [...] prior to her transfer of care from [facility]. She was noted to have severe polyhydramnios at her primary OB clinic [facility]. We discussed the finding of moderate [...] the following plan: 1. BPP at our [facility] clinic in [place] in one week - - if severe polyhydramnios at that time, our [facility] team will need tocoordinate delivery with the [facility] team to allow forproximately to NICU expertise. The family prefers this location over [facility] for proximity - moderate polyhydramnios - delivery can be facilitated at [place],with pediatrics staff present - mild polyhydramnios - delivery can be facilitated at [place], withpediatrics notified of US findings and family [...] see the patient(reviewing medical records/tests), in direct dibl-hf-cqwp contact with the patient counseling and discussingthe plan of care, documenting the visit in the electronic medical record,and communicating with other health healthcare management consultant and/or care coordination. IMPRESSION ----- 1. Ward [...] is reassuring, performed due to polyhydramnios. us Qeu Madrid APRN CNM IMG [facility] US ORDERABLES Edit ed Result - Final * HIV Antigen Antibody Combo (09/14/2021 7:06 AM CORE WORKER) HIV Antigen Antibody Combo Nonreactive Nonreactive 09/14/2021 3:02 PM CORE WORKER SPECIALTY CORE/PROT/EN DO Comment:HIV-1 p24 Ag & HIV-1 /HIV-2 Ab Not Detected Blood STRUCTURE OF RIGHT UPPER LIMB / Unknown Venipuncture / Unknown 09/14/2021 7:06 AM CORE WORKER 09/14/2021 7:15 AM CORE WORKER Prudence Sauceda APRN FIRE PREVENTION ENGINEER LAB - BLOOD ORDERABLES Final Result [facility] SPECIALTY CORE/PROT/ENDO [facility] Specialty Core/Prot/Endo [address] [facility], Room [address] [phone] * Hepatitis C Screen Reflex to HCV RNA Quant and Genotype (09/14/2021 7:06 AM CORE WORKER) Hepatitis C Antibody Nonreactive Nonreactive 09/14/2021 3:02 PM CORE WORKER SPECIALTY CORE/PROT/EN DO Blood STRUCTURE OF RIGHT UPPER LIMB / Unknown Venipuncture / Unknown 09/14/2021 7:06 AM CORE WORKER 09/14/2021 7:15 AM CORE WORKER Narrative [facility] SPECIALTY CORE/PROT/ENDO - 09/14/2021 3:02 PM CORE WORKER Assay performance characteristics have not been established for newborns, infants, and children. Prudence Sauceda APRN, CNP LAB - BLOOD ORDERABLES Final Result [facility] SPECIALTY CORE/PROT/ENDO [facility] Specialty Core/Prot/Endo [address] [facility] [address] [facility], Room [address] [place] [id number] [phone] * Pap Screen with HPV - recommended age 30 - 65 years (09/11/2021 4:51 PM CORE WORKER) Interpretation Negative for Intraepithelial Lesion or Malignancy (NILM) 09/14/2021 1:58 PM CORE WORKER SPECIALTY LABS at 1358 CORE WORKER Comment Papanicolaou Test Limitations: Cervical cytology is a screening test with limited sensitivity, and regular screening is critical for cancer prevention. Pap tests are primarily effective for the diagnosis/prevent ion of squamous cell carcinoma, not adenocarcinoma or other cancers. 09/14/2021 1:58 PM CORE WORKER SPECIALTY LABS Specimen Adequacy Satisfactory for evaluation, endocervical/puga sformation zone component absent 09/14/2021 1:58 PM CORE WORKER SPECIALTY LABS Clinical Information none 09/14/2021 1:58 PM CORE WORKER SPECIALTY LABS Reflex Testing Yes regardless of result 09/14/2021 1:58 PM CORE WORKER SPECIALTY LABS Previous Abnormal? No 09/14/2021 1:58 PM CORE WORKER SPECIALTY LABS Performing Labs The technical component of this testing was completed at [facility] 09/14/2021 1:58 PM CORE WORKER SPECIALTY LABS Brushing CERVIX UTERI STRUCTURE / Unknown 09/11/2021 4:51 PM CORE WORKER 09/11/2021 5:09 PM CORE WORKER Prudence Sauceda APRN, CNP LAB - BEAKER AP Final R esult SPECIALTY LABS [facility] Specialty Lab [address] [facility] [address] Building, Room [address] [place] [address], [facility] [phone] * HPV High Risk Types DNA Cervical (09/11/2021 4:51 PM CORE WORKER) Other HR HPV Negative Negative 09/18/2021 8:12 AM CORE WORKER MOLECULAR DIAGNOSTICS HPV16 DNA Negative Negative 09/18/2021 8:12 AM CORE WORKER MOLECULAR DIAGNOSTICS HPV18 DNA Negative Negative 09/18/2021 8:12 AM CORE WORKER MOLECULAR DIAGNOSTICS FINAL DIAGNOSIS This patient's sample is negative for HPV DNA. This test was developed and its performance characteristics determined by the [facility], Molecular Diagnostics Laboratory. It has not been cleared or approved by the FDA. The laboratory is regulated under CLIA as qualified to perform high-complexity testing. This test is used for clinical purposes. It should not be regarded as investigational or for research. METHODOLOGY: The Kristin Meghan 4800 system uses automated extraction, simultaneous amplification of HPV (L1 region) and beta-globin, followed by real time detection of fluorescent labeled HPV and beta globin using specific oligonucleotide probes. The test specifically identified types HPV 16 DNA and HPV 18 DNA while concurrently detecting the rest of the high risk types (31, 33, 35, 39, 45, 51, 52, 56, 58, 59, 66 or 68). COMMENTS: This test is not intended for use as a screening device for woman under age 30 with normal cervical cytology. Results should be correlated with cytologic and histologic findings. Close clinical followup is recommended. 09/18/2021 8:12 AM CORE WORKER MOLECULAR DIAGNOSTICS Brushing CERVIX UTERI STRUCTURE / Unknown Non-blood Collection / Unknown 09/11/2021 4:51 PM CORE WORKER 09/17/2021 10:28 AM CORE WORKER us Prudence Sauceda APRN FIRE PREVENTION ENGINEER LAB - BLOOD ORDERABLES Final Result [facility] DI[facility]NOST[facility] Molecular Diagnostics [address], [address] [place] [address], [facility] [phone] from Last 3 Months or Most Recently Relevant to Health Maintenance Insurance [facility] Address[facility] [address] [place] [address] [facility] [employer] [facility] Care Teams Chlorine Cell Tender Relationship Specialty Start Date End Date Prudence Sauceda APRN FIRE PREVENTION ENGINEER [address] [place] [address] PCP - General Family Medicine 03/07/21
--- OUTSIDE RECORDS SUMMARY | 2025-05-30 21:11 | XMS_ITS | Encounter Summary ---
Author Organization [facility] Address [address] [place] [address] Care Team Providers Care Parking Station Attendant Name Role Phone Prudence Sauceda APRN, CNP Unavailable [phone] Prudence Sauceda APRN, CNP Primary Care Provider Encounter Details Date Type Department Care Team (Late st Contact Info) Description 08/16/2021 [facility] [place] [address] [phone] Prudence Sauceda APRN SLOT MACHINE DEPARTMENT FLOORPERSON [address] [place] [phone] Social History Tobacco Use Types Packs/Day Years Used Date Smoking Tobacco: Never Smokeless Tobacco: Never Alcohol Use Standard Drinks/Week Comments Yes 0 (1 standard drink = 0.6 oz pur e alcohol) less then 1 mper wk PHQ-2 Answer Date Recorded PHQ-2 Score 0 12/07/2018 Comments Unknown Sex and Gender Information Value Date Recorded Sex Assigned at Not on file Legal Sex Female 12:50 PM EXPERIMENTAL PHYSICIST Gender Identity Not on file Sexual Orientation Not on file documented as of this encounter Plan of Treatment Not on file documented as of this encounter Visit Diagnoses Not on filedocumented in this encounter Care Teams Parking Station Attendant Relationship Specialty Start Date End Date Prudence Sauceda APRN CNP [address] [place] [phone] PCP - General Family Medicine 03/07/21 Prudence Sauceda APRN SLOT MACHINE DEPARTMENT FLOORPERSON [address] [place] [address] Assigned PCP 09/10/20 10/23/24 documented as of this encounter
--- OUTSIDE RECORDS SUMMARY | 2025-05-30 21:11 | XMS_ITS | Encounter Summary ---
Author Organization [facility] Address [address] [place] [address] Care Team Providers Care Recreational Programs Director Name Role Phone Prudence Sauceda APRN, CNP Primary Care Provider Encounter Details Date Type Department Care Team (Latest Contact Info) Description 05/16/2025 Travel Social History Tobacco Use Types Packs/Day [...] on file Legal Sex Female 12:50 PM ERRAND RUNNER Gender Identity Not on file Sexual Orientation Not on file documented as of this encounter Plan of Treatment Not on file documented as of this encounter Visit Diagnoses Not on filedocumented in this encounter Care Teams Recreational Programs Director Relationship Specialty Start Date End Date Prudence Sauceda APRN CNP [address] [place] [address] PCP - General Family Medicine 03/07/21 documented as of this encounter
--- OUTSIDE RECORDS SUMMARY | 2025-05-30 21:11 | XMS_ITS | Encounter Summary ---
Author Organization [facility] Address [address] [place] [address] Care Team Providers Care Seconds Handler Name Role Phone Prudence Sauceda APRN, CNP Unavailable [phone] Prudence Sauceda APRN, CNP Primary Care Provider Reason for Visit * Reason Onset Date Comments MyChart Communication 03/07/2021 Encounter Details Date Type Department Care Team (Late st Contact Info) Description 03/07/2021 [facility] Medical Advice [address] [phone] Prudence Sauceda APRN CNP [address] [place] [address] MyChart Communication Social History Tobacco Use Types Packs/Day Years [...] on file Legal Sex Female 12:[address] Gender Identity Not on file Sexual Orientation Not on file documented as of this encounter Miscellaneous Notes * Telephone Encounter - Prudence Sauceda APRN CNP - 03/07/2021 1:48 PM CDT Noted. - JMeixl, CODING EDUCATOR * Telephone Encounter - Lesa Richmond RN - 03/07/2021 1:44 PM CDT Please see my chart message below Please review and advise Thank you Lesa Richmond RN, BSN [place] Triage documented in this encounter Plan of Treatment Not on file documented as of this encounter Visit Diagnoses Not on filedocumented in this encounter Care Teams Seconds Handler Relationship Specialty Start Date End Date Prudence Sauceda APRN CNP [address] [place] [address] PCP - General Family Medicine 03/07/21 Prudence Sauceda APRN CNP [address] [place] [id number] Assigned PCP 09/10/20 10/23/24 documented as of this encounter
--- OUTSIDE RECORDS SUMMARY | 2025-05-30 21:11 | XMS_ITS | Clinical Summary ---
Author Organization [email or web address] [facility] Address [address] [place] [id number] Care Team Providers Care Clinical Administrator Name Role Phone Pcp, No Primary Care Provider Unavailabl Nargis Haines [facility] Unavailable [phone] Prudence Chamorro Unavailable [phone] Allergies Active Allergy Reactions Criticality Noted Date Comments Amoxicillin Rash 10/16/2006 Medications tretinoin 0.05 % 0.05 % cream at bedtime. 10/14/2013 Acti ve norgestimate-eth inyl estradiol (ORTHO TRI-CYCLEN, 28,) 0.18/0.215/0.25 mg-35 mcg (28) tabletIndication s:Other acne,Irregular menstrual cycle Take 1 tablet by mouth once daily. 3 Package 2 01/11/2014 Active Active Problems Problem Noted Date Diagnosed Date [facility] Supervision of high-risk 5 Overview (01/25/2025): Tonie Villaseñor : 1990 REFERRING PROVIDER/CLINIC LOCATION/FAX #: DESMOND Agosto - [facility] FAX: [phone] Primary MD approves scheduling of recommended ultrasounds/testing: Yes [facility] ULTRASOUND/TESTING PATIENT Support person name: ULTRASOUND TYPE: L2 REASON FOR VISIT: Possible HENRRY NEXT VISIT ALERTS: NURSING VISIT ALERT: Create and link episode at day of visit. Document in Dating section. GA Final DOM by LMP LMP Date: 08/28/24 DOM: 06/04/25 Early US: Date: 10/29/24 GA: 9w1d DOM: 06/02/25 PrePregnancy Weight: 127 Height: 5'3 BMI: 22.5 PLANS & FUTURE APPOINTMENTS: ULTRASOUND/GROWTH PLAN: - Through: - Growth: Next TESTING PLAN: - Testing: Through DELIVERY PLAN: desires TOLAC - Scheduled delivery: - Preferred delivery location: PRIMARY DIAGNOSIS: 34 y.o. Estimated Date of Delivery: 06/04/25 : Possible L EIF MATERNAL: Migraines 2022 Term C/S (GHTN, FTP, intolerance) PREVIOUS ULTRASOUNDS: 01/21/25 EFW 454 grams, percentile: 91. Possible L EIF (PCP) ECHO: SPECIALISTS/CONSULTS: Include: Specialty MD Clinic Name Phone# [facility] [place] and ADDED TO PATIENT CARE TEAM Yes GENETICS: Declines CARE COORDINATION: PERTINENT LABS: Labs reviewed? Normal? Blood type: No results found in past 5 years Antibody screen: No results found in past 5 years Non-[facility] labs need to be entered in [employer]? PERTINENT MEDS: bASA? PROCEDURES: IF FGR <10% or EFW <2000 grams: Add FGRPCOM PLAN OF CARE: Original and updated POC cardiac echogenic focus, antepartum 2022 Suspected condition not found 03/25/2023 Other acne 10/16/2006 Estimated Date of Delivery Comme nts Yes 06/04/2025 Based on last me nstrual period of 08/28/2024 Resolved Problems Problem Noted Date Diagnosed Date Resolved Date [facility] Supervision of high-risk 03/18/2023 01/25/2025 Overview (03/18/2023): [facility] ULTRASOUND/TESTING PATIENT Support person name: Raji Financial Services Manager: No ULTRASOUND TYPE: L2 REASON FOR VISIT: Incomplete profile and echogenic focus on FAS 03/03/23; f/u U/S on 03/10 profile appears normal, small intracardiac hyperechoic focus NEXT VISIT ALERTS: Non-[facility] labs need to be entered in [employer]? Yes NURSING VISIT ALERT: Create and link [...] ECHO: REFERRING PHYSICIAN/PHONE/LAST UPDATE: Nargis Iniguez CNM [place] [phone] Primary MD approves scheduling of recommended ultrasounds/testing: No SPECIALISTS/CONSULTS: Include: Specialty MD Clinic Name Phone# [facility] [place] and ADDED TO PATIENT CARE TEAM Yes GENETICS: Declines/Not Done CARE COORDINATION: PERTINENT LABS: Labs reviewed? Yes Normal? Yes Blood type: A negative Antibody screen: negative PERTINENT MEDS: PROCEDURES: IF FGR <10% or EFW <2000 grams: Add FGRPCOM PLAN OF CARE: Original and updated POC Immunizations Immunization Administration Dates Next Due DTaP [...] Comments Hypertension Father Heart Disease Paternal Grandfather MT Diabetes Paternal Grandmother Heart Disease Paternal Uncle MT Relation Name Status Comments Father Alive Maternal Grandfather Alive Maternal Grandmother Alive Mother Alive Paternal Grandfather (Age 40s) M I Paternal Grandmother Alive Paternal Uncle Social History Tobacco Use Types Packs/Day Years Used Date Smoking Tobacco: Never Smokeless Tobacco: Never Alcohol Use Standard Drinks/Week Comments Yes 0 (1 standard drink = 0.6 oz pur e alcohol) occasional Estimated Date of Delivery Comme nts Yes 06/04/2025 Based on last me nstrual period of 08/28/2024 Sex and Gender Information Value Date Recorded Sex Assigned at Not on file Legal Sex Female 5:26 AM Gender Identity Not on file Sexual Orientation Not on file Obstetrics History Para Term AB IAB SAB Ectopic Multiple Livin g Live Births 2 1 1 1 1 Date Outcome GA Total Labor Labor/2nd/3rd Weight Sex Type Anes PTL Mara A1 A5 Name Clin 2022 Term C-Secti on Current Summary Episode Dates Number of Fetuses Estimated Date of Delivery 01/27/2025 - Present (05/30/2025) 06/04/2025 (set by Kate Parker RN on 01/27/2025 based on Last Menstrual Period on 08/28/2024) Dating Summary Based On DOM GA Diff Last Menstrual Period on 08/28/2024 06/04/2025 Working Vitals Date GA Fund Present FHR Mvmt BP Weight Edema Alb Glu Ket Dil/ Eff/Sta 5 21w5d Inpatient data not displayed here. See encounter summary. Notes Progress Notes - Hospital En counter - 01/27/2025 - GA:21w5d 01/27/2025 - 21w5d - Kate Parker, RN Lab draw at [facility] Venipuncture performed for ordered labs. Sample obtained without incident. Lab follow up: Discussed with patient that we will call her with any abnormal results otherwise will discuss results at next visit. Results will also be released to My Chart if MyChart active. Patient agreeable to this. Note sent for cosign? No Lab scheduled on the DEANNA: Yes. Lab charge completed: Yes. Kate Parker RN .................... 01/27/2025 9:29 AM 01/27/2025 - w5d - Dhara Brody MS, [facility] / Clinic Note Genetic Counseling RE: Tonie Villaseñor : 1990 MR: [id number] Partner name: Raji (not present today) Referred By: Prudence Chamorro CNM [address] [place] [address] Indication for Visit: Echogenic intracardiac focus (EIF) on outside ultrasound History: Estimated Date of Delivery: 06/04/25 by LMP GAA: 21w5d Complete genetic screening/testing: None Medications: None noted Exposures/infections: None noted Family History: A partial pedigree was obtained at today's appointment. Please see scans for details. Patient history notable for: Paternal family history of heart disease. Her paternal grandfather had a heart attack around age 40 along with her paternal uncle and her cousin through that uncle also with heart attacks around 42 and 34 respectively. Tonie believes this is primarily due to a notable family history of high cholesterol. Tonie's father is healthy at age 65 but does have increased cholesterol levels. Partner history was unremarkable. Patient ethnicity: (White) Partner ethnicity: (White) Consanguinity: none noted Risk Assessment: Discussed the ultrasound finding of an EIF along with possible underlying causes including normal variation or genetic conditions like trisomy 21. EIFs are seen in ~3 to 5% of pregnancies. An EIF is a small bright spot seen in the muscle wall of the heart. EIFs are not known to affect the heart structure or function. They are not associated with equipment operator intermodal yard effects on heart health or function (Mirna, 2003). When an EIF is seen in association with other ultrasound findings such as heart defects, thickened nuchal fold, echogenic bowel, absent nasal bone, or shortened long bones, the chance for Trisomy 21 (Down syndrome) is increased for the . EIFs more frequently occur in pregnancies with Down syndrome (Linda, 1995). When an EIF is the only ultrasound finding, it most likely represents normal variation (Aylin, 2004; Shanks, 2009). Cell free DNA screening was offered in accordance with [facility] recommendations. If screening is low risk for Trisomy 21, the can be managed through routine care. A detailed level ll ultrasound can be used to look for additional findings. Approximately 50-60% of babies with Down syndrome have observable findings on a level ll ultrasound. If more concerns are noted, additional testing will be recommended. A normal level II ultrasound will reduce, but not eliminate, the risk for chromosome aneuploidy. There is a 3-5% background risk for defects and a 1-2% background risk for intellectual disability and/or developmental delay for any given . Discussed Tonie's age related risk for chromosomal aneuploidy, providing info about the conditions and age related risks. At Tonie's age of 35 at delivery, the chance for any chromosome difference is approximately 1 in 244 and the chance for Down syndrome is approximately 1 in 455 at term. Given the EIF on outside ultrasound, there's a 2-5x increased risk for trisomy 21 to be identified for this . This finding increases Tonie's risk to approximately 0.5-1%. The following genetic screening and testing options were discussed: Reviewed cfDNA screening for aneuploidy including trisomy 21 Discussion: Tonie presented today for genetic counseling regarding the EIF seen on outside ultrasound. Tonie previously met with me in her last for the same indication. We reviewed that given the family history, there is reasonable suspicion that this is a familial finding (and benign, like in her last ) but trisomy 21 cannot be ruled out at this time. A 2017 study by Renan et. al. found that in cases of EIF family recurrence, trisomy 21 was not identified in any of the 60 cases (PMID: [id number]). Tonie noted that while she is not concerned about this finding, her partner Raji, would like the reassurance or information of a cfDNA screen in addition to the ultrasound today. She was able to call and speak with him following our session today. A blood draw will be added following her ultrasound today. Tonie also saw Dr. Ward today; please see his notes for further details regarding today's appointment. The patient verbalized her understanding of our consult today and has no further questions at this time. Insurance coverage cannot be guaranteed for any of the screening or testing which was discussed. I will ensure that both her primary and secondary insurance plan information is provided to Wilfrid the testing lab. We reviewed that while insurance may notate a service is covered, or covered after a prior authorization is filed on the patient s behalf, this is not a guarantee of payment as covered services were typically subject to co-pays and deductibles. For example, if a high deductible plan, one could still get a bill for the procedure and/or testing near the full david of the test. Tonie opted to proceed with testing today and verbalized understanding that coverage cannot be guaranteed. Plan: Tonie elected to proceed with cfDNA screening for aneuploidy through [employer] ([facility]) after today s consult. Results are anticipated to be available in 7-10 business days. Results will be released through the third green party site [employer]. We will call with results as soon as they are available. Results will also be available in the [employer] patient portal if they choose to create an account. Thank you for allowing us to participate in your patient's care. Please do not hesitate to contact me with any additional questions or concerns. Sincerely, Dhara Brody MS, TAMMY Licensed Genetic Counselor Total [id number] time: 15 minutes; Total time preparing to see this patient and coordinating care time on the same calendar date: 45 minutes. [facility] [address], [address] [place], [place] [id number] Last Filed Vital Signs Vital Sign Reading Time Taken Comments Blood Pressure 113/73 08/30/2017 1:43 PM Pulse 82 08/30/2017 1:43 PM Temperature 36.5 C (97.7 F) 08/30/2017 1:43 PM drinking water Respiratory Rate 16 08/30/2017 1:43 PM Oxygen Saturation 100% 08/30/2017 1:4 3 PM Inhaled Oxygen Concentration - - Weight 55.6 kg (122 lb 9.6 oz) 08/30/2017 1:43 PM Height 160 cm (5' 2.99) 10/18/2013 10: [...] 2009 Pap test for age 21-65 2012 HPV series for age 9-45 (1 - 3-dose SCDM series) 2018 Tetanus booster 01/13/2023 01/13/2013, 02/14/2003 Influenza Vaccine (#1) 2025 05/18/2013 Hepatitis B series for 19+ Completed 12/26, 03/21/2003, 02/14/2003 Pneumococcal series for age 6-49 Aged Out No longer eligible b ased on patient's age to complete this topic RSV vaccine for adults or (No Doses Required) Completed Insurance [facility] Care Teams Clinical Administrator Relationship Specialty Start Date End Date Pcp, No . PCP - General 02/14/23 Nargis Iniguez CNM [address] [place] [phone] Certified Nurse Linking Machine Operator 03/14/23 Prudence Chamorro CNM [address] [place] [address] Referring Provider Certified Nurse Linking Machine Operator 01/25/25
--- OUTSIDE RECORDS SUMMARY | 2025-05-30 21:11 | XMS_ITS | Encounter Summary ---
Author Organization [facility] Address [address] [place] [address] Care Team Providers Care Kitchen Assistant Name Role Phone Prudence Sauceda APRN, CNP Primary Care Provider Reason for Visit * Reason Comments Ultrasound L2-new onset polyhyd ramnios Encounter Details Date Type Department Care Team ([facility] st Contact Info) Description 05/09/2025 PRE VISIT [facility] [place] [address] [place] [address] Aundrea Mattson RN Ultrasound (L2-new onset polyhydramnios) Social History Tobacco Use Types Packs/Day Years [...] on file 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
[2025-05-30 21:37] VITALS: BP 129/81; PULSE 64; RESP 16; O2SAT 98; BMI 23.7
--- NOTE | 2025-05-30 22:41 | CRLHL7_ITS ---
For Patients: As a result of the Century Cures Act, medical imaging exams and procedure reports are released immediately into your electronic medical record. You may view this report before your referring provider. If you have questions, please contact your health care provider. INDICATION: Left upper leg pain, 1 week post . COMPARISON: None. TECHNIQUE: A compression venous ultrasound exam was performed of the left lower extremity using blue-scale imaging, color Doppler, and spectral Doppler analysis. FINDINGS: Sonographic imaging of the left lower extremity demonstrates normal compressibility and color Doppler venous blood flow within the common femoral, femoral, deep femoral, and proximal greater saphenous veins. At a lower level the popliteal, peroneal, and posterior tibial veins also show normal compressibility and color Doppler venous blood flow. Limited imaging of the contralateral groin demonstrates a normal spectral waveform and color Doppler venous blood flow within the right common femoral vein. IMPRESSION: Negative for acute DVT in the left lower extremity. Dictated by Jennifer Disla MD @ 05/31/2025 12:23:03 AM (Electronically Signed)
--- NOTE | 2025-05-30 23:09 | ED_ITS ---
HPI - General Adult General Chief complaint: Extremity Pain/Injury, Lower Stated complaint: 1 week post - L leg pain Time Seen by Provider: 05/30/25 22:33 History of Present Illness HPI narrative: This 35-year-old female delivered a baby boy a without complication about a week ago. She is currently . She comes in with concern about pain in her left upper inner thigh. She does not report any shortness of breath or chest pain. She does not have a prior history of blood clot. She does not report any injury event. 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 Related Data Home Medications ?Medication ?Instructions ?Recorded ?Confirmed docosahexaenoic acid 200 mg 1 mg PO .qd 12/10/2205/30 capsule ( DHA) lactobacillus combination no.9 4 4,000 mmu cells PO ON CE 12/10/22 05/30/25 billion cell capsule (Adult 50 Plus Probiotic) Previous Rx's ?Medication ?Instructions ?Recorded acetaminophen 500 mg tablet 1,000 mg (2 x 500 mg) PO Q 6H PRN 07/17/23 Pain #0 tabs Allergies Allergy/AdvReac Type Severity Reaction Status Date / Time amoxicillin Allergy Mild Rash Verified 05/23/25 06:40 Review of Systems Status of ROS: Reports: 10 or more systems reviewed and unremarkable except as noted in History and below Narrative: Constitutional: No fevers, no weight gain or loss. Eyes: No discharge. No vision changes. HENT: No congestion, no sore throat, no ear pain. Cardiovascular: No chest pain, no palpitations. Respiratory: No shortness of breath, no wheezes, no cough. Gastrointestinal: No abdominal pain, no vomiting, no diarrhea. Genitourinary: No dysuria, no hematuria. Musculoskeletal: Normal range of motion. Skin: No rashes, no pruritis. Neurological: No dizziness, weakness, sensory change, speech change. Endo/Heme/Allergies: No bruising or bleeding. No polydipsia. Pysch: no suicidality, no anxiety, no insomnia. All other systems reviewed and are negative. [facility] Medical History (Updated 05/30/25 @ 23:55 by Tony Wilkinson MD) Migraine without aura ?G43.009 - Migraine without aura, not intractable, without status migrainosus (ICD-10) Lactating mother ?Z39.1 - Encounter for care and examination of lactating mother (ICD-10) Gestational hypertension ?O13.9 - Gestational [-induced] hypertension without significant proteinuria, unspecified trimester (ICD-10) delivery delivered ?O82 - Encounter for delivery without indication (ICD-10) Frequent UTI ?N39.0 - Urinary tract infection, site not specified (ICD-10) Surgical History (Updated 11/22/24 @ 08:28 by Skye Lopez CNM) Status post delivery ?Z98.891 - History of uterine scar from previous surgery (ICD-10) History of delivery ?Z98.891 - History of uterine scar from previous surgery (ICD-10) Family History (Updated 10/29/24 @ 11:42 by Esme Mae) Paternal Grandmother Diabetes Paternal Grandfather Myocardial infarction Uncle Myocardial infarction Social History (Updated 10/29/24 @ 18:09 by Esme Mae) Narrative: SOCIAL HISTORY: Education: Bachelors? Work: [employer]?? Partner: : Raji??? Lives with: Together, son, River, 1 yo?? Pets: Dog?? Abuse:Unable to assess, present??? Special Diet: Denies?? Ok with a blood transfusion: yes?? Culture or latter-day beliefs: denies? RISK FACTORS??? Exercise Times/wk: Walks, several times a week Hx of Depression and/or Anxiety/other mood disorder: Denies?? Seat Belt Use: Routinely?? Smoking: Denies? Alcohol/day: Denies while Caffeine: Denies?? Drug Use: Denies Chicken Pox: Yes as a child MRSA: Denies? ?? ROCHELLE: 0 PHQ 9: 2? Plan for feeding baby: ?? What is your current living situation?: I presently have a place to live Problems where you live: no known problems In the past 12 months, utilities in danger of being shut off: no In past 12 months, lack of transportation kept you from medical appts, meetings, work, or getting things needed for daily living: no In the past 12 mos, have been you worried that your food would run out before you had money to buy more?: never true In the past 12 mos, the food you bought just didn't last and you didn't have money to buy more?: never true Smoking Status: Never smoker Do you use any of these nicotine containing products: None Second hand tobacco smoke exposure: No How often do you have a drink containing alcohol: never AUDIT-C Alcohol total score: 0 Non-prescribed substance use: denies use How often does anyone, including family, friends and others, physically hurt you : never How often does anyone, including family, friends and others, insult or talk down to you: never How often does anyone, including family, friends and others, threaten you with harm: never How often does anyone, including family, friends and others, scream or curse at you: never Exam Narrative: Exam Narrative: Constitutional: Well-developed, well-nourished, no acute distress. HEENT: Normocephalic, atraumatic. Neck: Normal range of motion. Nontender. Supple. Heart: Regular. No murmurs. Normal rate. Intact distal pulses. Lungs: Clear to auscultation. No chest discomfort. No wheezes, rhonchi, or rales. Abdomen: Normal bowel sounds. Nontender. No rebound tenderness. Genitalia: Deferred. Back: No midline tenderness. Normal range of motion. Extremities: Normal range of motion. No injury. Left and right leg appear to be equal without sign of swelling or bruising in the left leg. Skin: Intact. No rash. Warm. No erythema or pallor. Neurologic: No altered sensation. No weakness. Alert and oriented. Psychiatric: No suicidality. No anxiety or depression. No insomnia. Nursing notes and vitals signs are reviewed. Const: Vital Signs, click to edit/add: Vital Signs - 24 hr 05/30/25 21:37 Pulse Rate [Pulse Oximeter] 64 Respiratory Rate 16 Blood Pressure [Ri ght Upper Arm] 129/81 Pulse Oximetry 98 Oxygen Delivery Me thod Room Air Course Vital Signs Vital signs: Initial Vital Signs Pulse Rate 64 05/30/25 21:37 Respiratory Rate 16 05/30/25 21:37 Blood Pressure 129/81 05/30/25 21:37 Blood Pressure Mean 97 05/30/25 21:37 Blood Pressure Position Sitting 05/30/25 21:37 Pulse Oximetry 98 05/30/25 21:37 Oxygen Delivery Method Room Air 05/30/25 21:37 Vital Signs Pulse Rate 64 05/30/25 21:37 Respiratory Rate 16 05/30/25 21:37 Blood Pressure 129/81 05/30/25 21:37 Pulse Oximetry 98 05/30/25 21:37 Oxygen Delivery Method Room Air 05/30/25 21:37 Pulse Rate 64 05/30/25 21:37 Respiratory Rate 16 05/30/25 21:37 Blood Pressure 129/81 05/30/25 21:37 Pulse Oximetry 98 05/30/25 21:37 Oxygen Delivery Method Room Air 05/30/25 21:37 Medical Decision Making MDM Narrative Medical decision making narrative: This patient comes in with concern about some pain in her left upper inner leg. 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 She does not have a prior history of blood clots. She did deliver her 2nd child about a week ago and everything went normally there. An ultrasound is obtained of the left lower extremity and this shows no evidence of thrombus. She is sufficiently reassured with these results and is okay to go home and res ume her current plans. Discharge Plan Discharge Clinical Impression: Feared condition not demonstrated Patient Disposition: Home, Self-Care Condition: Stable Additional Instructions: Continue current plans. Follow up with MD as needed. Return if worsening. Prescriptions: No Action DHA 200 mg capsule 1 mg PO .qd Adult 50 Plus Probiotic 4 billion cell capsule 4,000 mmu cells PO ONCE acetaminophen 500 mg Tablet 1,000 mg PO Q6H PRN (Reason: Pain) Qty: 0 0RF Follow Up/Referrals: Provider,Not a Local [Primary Care Provider, Family Practice] Stand Alone Forms: MyHealth Info Instructions
== END 2025-05-31 00:11 | disposition home or self-care (01) ==
PROVIDERS: Emergency Provider Emergency Medicine Emergency Medical Services
DX: Z71.1 Person with feared health complaint in whom no diagnosis is made (principal); M79.652 Pain in left thigh
CPT/HCPCS: 93971; 99283; 99284